=== PATIENT | male | born 1945 | race Caucasian/White ===

== ENCOUNTER → 2017-12-16 | Outpatient (REF) | payer MEDICARE | LOC: M SFHCPLAZ 17:13 | DX: L81.4 Other melanin hyperpigmentation (principal); L56.8 Other specified acute skin changes due to ultraviolet radiation; L85.9 Epidermal thickening, unspecified | CPT/HCPCS: 88305 ==

== ENCOUNTER 2018-07-19 15:29 | Emergency (ER) | payer MEDICARE ==
[~2018-07-19] VITALS: Ht 172.7 cm; Wt 82.9 kg
[2018-07-19] MEDS ORDERED: CO Q200C10 PO (16:17)
[2018-07-19] MEDS ORDERED: ASPI81TA85 PO (16:17)
[2018-07-19] MEDS ORDERED: ATOR1TAB19 PO (16:17)
[2018-07-19] MEDS ORDERED: FLUO20CA19 PO (16:17)
[2018-07-19] MEDS ORDERED: MULTCAP PO (16:17)
[2018-07-19] MEDS ORDERED: OXYB5TAB PO (16:17)
[2018-07-19] MEDS ORDERED: NEUR300C PO (17:12)
[2018-07-19] MEDS ORDERED: GABAPENTIN 300 MG CAP PO ONE (17:15)
[2018-07-19 18:45] VITALS: BP 133/76
--- NOTE | 2018-07-20 08:02 | ECGEPIP ---
[facility] - ED Test Date: 2018-07-19 Pat Name: FRITZ BECK Department: Room: - Gender: Male Senior Marketing Engineer: : 1945 Requested By: Chanda Wharton PA-C Order Number: [id number] Reading MD: Priyanka Leonard Measurements Intervals [place] Rate: 51 P: 55 VT: 192 QRS: 30 QRSD: 98 T: 24 QT: 422 QTc: 390 Interpretive Statements SINUS BRADYCARDIA No prior Electronically Signed on 07-20-2018 8:01:47 EDT by Priyanka Leonard
== END 2018-07-19 18:57 | disposition home or self-care (01) ==
LOC: M ED 15:29
DX: R68.84 Jaw pain (principal); M26.601 Right temporomandibular joint disorder, unspecified; R00.1 Bradycardia, unspecified; Z79.82 Long term (current) use of aspirin; Z79.899 Other long term (current) drug therapy

== ENCOUNTER → 2019-02-17 | Outpatient (CLI) | payer MEDICARE ==
[~2019-02-17] MED LIST: ASPI81TA85 PO; ATOR1TAB19 PO; CO Q200C10 PO; FLUO20CA19 PO; MULTCAP PO; NEUR300C PO; OXYB5TAB3 PO
--- NOTE | 2019-02-17 18:52 | REP ---
REASON: Crush injury to the 2nd digit of the right hand. FINDINGS: No acute fracture or destructive osseous lesion. Electronically Signed by Yariel Melgoza DO 02/17/2019 07:50 P
== END ==
LOC: M ADAMS 16:53
PROVIDERS: ATTEND Physician Assistant
DX: S67.190A Crushing injury of right index finger, initial encounter (principal); X58.XXXA Exposure to other specified factors, initial encounter; Y92.89 Other specified places as the place of occurrence of the external cause; Y93.9 Activity, unspecified; Y99.9 Unspecified external cause status

== ENCOUNTER → 2019-12-20 | Outpatient (REF) | payer MEDICARE ==
[~2019-12-20] MED LIST changes: -ASPI81TA85 PO; +ASPI81TA86 PO; -FLUO20CA19 PO; +FLUO20CA22 PO; +OXYB-54 PO; -OXYB5TAB3 PO
== END ==
LOC: M LAB REF 13:41
PROVIDERS: ATTEND Dermatology
DX: D04.4 Carcinoma in situ of skin of scalp and neck (principal); D23.5 Other benign neoplasm of skin of trunk; L57.0 Actinic keratosis

== ENCOUNTER 2020-06-03 22:38 | Emergency (ER) | payer MEDICARE ==
[~2020-06-03] VITALS: Ht 170.2 cm; Wt 81.8 kg
[2020-06-04] MEDS ORDERED: KETOROLAC 30 MG/ML 1ML VIAL IV ONE (01:10)
[2020-06-04] MEDS ORDERED: METHOCARBAMOL 1,000 MG/10 ML VIAL (J2800) IV ONE (01:10)
--- NOTE | 2020-06-04 01:35 | REPVR ---
PROCEDURE INFORMATION: Exam: CT Lumbar Spine Without Contrast Exam date and time: 06/04/2020 1:16 AM Age: 74 years old Clinical indication: Low back pain TECHNIQUE: Imaging protocol: Computed tomography images of the lumbar spine without contrast. Radiation optimization: All CT scans at this facility use at least one of these dose optimization techniques: automated exposure control; mA and/or kV adjustment per patient size (includes targeted exams where dose is matched to clinical indication); or iterative reconstruction. COMPARISON: CR Spine. Lumbosacral, complete 03/04/2015 8:52 AM FINDINGS: Vertebrae: Trace retrolisthesis of T12 on L1. Remainder demonstrates preserved height and AP alignment. Mild to moderate prevertebral osteophytosis. There are bilateral facet joint degenerative changes. No acute lumbar spine fracture. Discs/Spinal canal/Neural foramina: Central canal stenosis greatest at L4-L5, likely [id number]. Vasculature: Vascular calcification. Soft tissues: See "Vertebrae" finding. IMPRESSION: No acute osseous abnormality. Electronically signed by: Drake Leslie On 06/04/2020 01:36:22 AM
[2020-06-04 02:45] VITALS: BP 146/76
[2020-06-04] MEDS ORDERED: OXYCODONE/APAP 5MG/325MG(BULK FOR ED) 1 TABLET PO ONE (03:00)
[2020-06-04] MEDS ORDERED: METH-1165 PO (03:01)
[2020-06-04] MEDS ORDERED: NAPR-837 PO (03:01)
[2020-06-04] MEDS ORDERED: PERC5TAB12 PO (03:01)
== END 2020-06-04 03:17 | disposition home or self-care (01) ==
LOC: M ED 22:38
DX: M54.5 Low back pain (principal); X50.0XXA Overexertion from strenuous movement or load, initial encounter; Y92.9 Unspecified place or not applicable; Y93.9 Activity, unspecified; Y99.9 Unspecified external cause status
CPT/HCPCS: 72131; 96374; 99284; J1885; J2800

== ENCOUNTER → 2020-07-12 | Outpatient (REF) | payer MEDICARE ==
[~2020-07-12] MED LIST changes: +METH-1165 PO; +NAPR-837 PO; +PERC5TAB12 PO
[2020-07-12 18:08] LABS: APPEARANCE, URINE CLEAR (CLEAR); BACTERIA, URINE AUTO NEGATIVE (NEGATIVE); BILIRUBIN, URINE AUTO NEGATIVE (NEGATIVE); BLOOD, URINE BLOOD NEGATIVE (NEGATIVE); COLOR, URINE YELLOW (YELLOW); GLUCOSE, URINE (UA) AUTO NEGATIVE (NEGATIVE); KETONE, URINE AUTO NEGATIVE (NEGATIVE); LEUKOCYTE ESTERASE, URINE AUTO NEGATIVE (NEGATIVE); MUCUS, URINE SMALL (NEGATIVE); NITRITE, URINE AUTO NEGATIVE (NEGATIVE); PROTEIN, URINE AUTO NEGATIVE (NEGATIVE); RBC, URINE AUTO 0 /HPF (0-3); SPECIFIC GRAVITY URINE AUTO 1.021 (1.002-1.035); SQUAMOUS EPITHELIAL CELL UR AU 0 /HPF (0-6); WBC, URINE AUTO 2 /HPF (0-3)
== END ==
LOC: M SMT 16:47
PROVIDERS: ATTEND Nurse Practitioner Family
DX: N40.1 Benign prostatic hyperplasia with lower urinary tract symptoms (principal)
CPT/HCPCS: 51798; 81001; 87086; G0463

== ENCOUNTER → 2020-09-26 | Outpatient (REF) | payer MEDICARE ==
[2020-09-26 12:29] LABS: FOLATE > 24.0 NG/ML; VITAMIN B12 LEVEL 504 PG/ML
== END ==
LOC: M LAB REF 11:21
PROVIDERS: ATTEND Registered Nurse
DX: R53.83 Other fatigue (principal)

== ENCOUNTER 2020-12-26 13:13 | Emergency (ER) | payer MEDICARE ==
[~2020-12-26] VITALS: Ht 172.7 cm; Wt 79.5 kg
[2020-12-26 13:13] VITALS: BP 159/74
--- OUTSIDE RECORDS SUMMARY | 2020-12-26 13:19 | CCD | Continuity of Care Document ---
Author Author Cleveland LUGO P.A. Organization Unknown Address [address] [place] [address] Phone [phone] Care Team Providers Care Electrical Journeyman Name Role Phone Beatriz Stephens AUTM [phone] Imelda Szymanski M.D. AUTM [phone] Toyin Lorenzana AUTM [phone] AUTM Unavailable Problems Active Problems Provider Date Localized swelling, mass and lump, neck Rickey Redmond MD Onset: 11/20/2014 Social History Type Date Description Comments Sex Unknown ETOH Use 1 A Day Tobacco Use Start: Unknown Non Smoker Recreational Drug Use Denies Drug Use Smoking Status Reviewed: 12/10/20 Non Smoker Allergies and adverse reactions Description No Known Drug Allergies Medications Active Medications SIG Qnty Indications Ordering Provide r Date Fluoxetine HCL 10mg Capsules Unknown Atorvastatin Calcium 10mg Tablets 1 by mouth every day Unknown Oxybutynin Chloride ER 10mg Tablets ER 24HR 1 cap by mouth every day Unknown Coq10 200mg Capsules 1 cap by mouth every day Unknown Multivitamin Tablets 1 by mouth every day Unknown Immunizations Description No Information Available Vital Signs Date Vital Result Comment 12/10/2020 2:18pm BP Systolic 114 mmHg BP Diastolic 62 mmHg Heart Rate 60 /min O2 % BldC Oximetry 94 % Height 68 inches 5'8" Weight 183.00 lb BMI (Body Mass Index) 27.8 kg/m2 [place] Body Weight 154 lb Neck Circumference in inches 16.5 [place] Score 9 Weight 83.009 kg BSA (Body Surface Area) 1.97 m2 05/24/2015 9:44am BP Systolic 122 mmHg BP Diastolic 82 mmHg Heart Rate 76 /min Height 68 inches 5'8" Weight 172.00 lb BMI (Body Mass Index) 26.1 kg/m2 [place] Body Weight 154 lb Weight 78.019 kg BSA (Body Surface Area) 1.92 m2 Results Description No Information Available Procedures Date Code Description Status 12/10/2020 56293 Office/Outpatient New Low MDM 30 -44 Minutes Completed Medical Devices Description No Information Available Encounters Type Date Location Provider Dx Diagnosis Office Visit 12/10/2020 2:30p [facility] Pulmonary/Thoracic All Lugo P.A. R06.83 Snoring G47.30 Sleep apnea, unspecified R40.0 Somnolence Assessments Date Code Description Provider 12/10/2020 R06.83 Snoring All Lugo P. A. 12/10/2020 G47.30 Sleep apnea, unspecified All Lugo P.A. 12/10/2020 R40.0 Somnolence All Lugo PLeigha Mohamud Plan of Treatment Future Appointment(s):* 01/28/2021 3:00 pm - All Lugo PIsiah at [facility] Pulmonary/Thoracic * 01/15/2021 7:45 pm - [facility] Sleep Lab at [facility] 12/10/2020 - Rickie Joseph.* R06.83 Snoring * G47.30 Sleep apnea, unspecified * R40.0 Somnolence * * New Orders:* Sleep Nocturnal Diagnostic Sleep Study, Scheduled: 01/15/21 * Comments:* 1. The morbidity of untreated obstructive sleep apnea was reviewed and questions were answered.2. PSG and PAP therapy were reviewed and questions were answered.3. We will schedule for PSG.4. Sleep hygiene was reviewed. * Follow up:* 1. Follow up after testing. Functional Status Description No Information Available Mental Status Description No Information Available Referrals Refer to Reason for Referral Status Appt Date All Lugo R.PEri ? MELCHOR Scheduled 11/17 [facility]-Pulmonary [address] [place] [address] [phone]
--- OUTSIDE RECORDS SUMMARY | 2020-12-26 13:19 | CCD | Continuity of Care Document ---
Author Author Cleveland LUGO P.A. Organization Unknown Address [address] [place] [address] Phone [phone] Care Team Providers Care Industrial Hygienist Name Role Phone Beatriz Stephens AUTM [phone] Imelda Szymanski M.D. AUTM [phone] Toyin Lorenzana AUTM [phone] AUTM Unavailable Problems Active Problems Provider Date [...] lb BMI (Body Mass Index) 27.8 kg/m2 [place] Body Weight 154 lb Neck Circumference in inches 16.5 [place] Score 9 Weight 83.009 kg BSA (Body Surface Area) 1.97 m2 05/24/2015 9:44am BP Systolic 122 mmHg BP Diastolic 82 mmHg Heart Rate 76 /min Height 68 inches 5'8" Weight 172.00 lb BMI (Body Mass Index) 26.1 kg/m2 [place] Body Weight 154 lb Weight 78.019 kg BSA (Body Surface Area) 1.92 m2 Results Description No Information Available Procedures Description No Information Available Medical Devices Description No Information Available Encounters Description No Information Available Assessments Date Code Description Provider 12/10/2020 R06.83 Snoring Luis Joseph 12/10/2020 G47.30 Sleep apnea, unspecified Ulises Joseph 12/10/2020 R40.0 Somnolence Luis Joseph Plan of Treatment Future Appointment(s):* 01/28/2021 3:00 pm - Ulises Joseph at [facility] Pulmonary/Thoracic * 01/15/2021 7:45 pm - [facility] Sleep Lab at [facility] Pulmonary/Thoracic 12/10/2020 - Ulises Joseph* R06.83 Snoring * G47.30 Sleep apnea, unspecified [...] All Lugo R.PEri ? MELCHOR Scheduled 11/17 [facility]-Pulmonary [address] [place] [address] [phone]
--- OUTSIDE RECORDS SUMMARY | 2020-12-26 13:19 | CCD | Continuity of Care Document ---
Author Author Cleveland LUNA DPM Organization Unknown Address [address] [place] [address], [facility] [address] [place] [address] Phone [phone] Care Team Providers Care Grants And Contracts Assistant Name Role Phone Milagros BairesImelda [phone] Problems Active Problems Provider Date Osteochondropathy Mat Luna DPM Onset: 12/30/2018 Hammer toe Mat Luna DPM Onset: 12/30/2018 Corns and callosities Mat Luna DPM Onset: 12/30/2018 Social History Type Date Description Comments Sex Unknown ETOH Use Consumes 2-3 beers per week Tobacco Use Start: Unknown Patient has never smoked Allergies, Adverse Reactions, Alerts Description No Known Drug Allergies Medications Active Medications SIG Qnty Indications Ordering Provide r Date Atorvastatin Calcium 10mg Tablets Angelo CLOTHES SEPARATOR,Beatriz Fluoxetine HCL 20mg Capsules Angelo CLOTHES SEPARATOR,Beatriz Oxybutynin Chloride ER 5mg Tablets ER 24HR Angelo GAXIOLAP,Beatriz 0 Gabapentin 300mg Capsules Unknown Terbinafine HCL 250mg Tablets Angelo CLOTHES SEPARATOR,Beatriz Immunizations Description No Information Available Vital Signs Date Vital Result Comment 10/11/2020 10:31am Height 68 inches 5'8" Weight 175.00 lb BP Systolic 116 mmHg BP Diastolic 68 mmHg Heart Rate 58 /min BMI (Body Mass Index) 26.6 kg/m2 01/31/2020 1:43pm Height 68 inches 5'8" Weight 175.00 lb BP Systolic 120 mmHg BP Diastolic 66 mmHg Heart Rate 60 /min BMI (Body Mass Index) 26.6 kg/m2 Results Description No Information Available Procedures Date Code Description Status 10/11/2020 36397 Office/Outpatient Established Lo w MDM 20-29 Min Completed Medical Devices Description No Information Available Encounters Type Date Location Provider Dx Diagnosis Office Visit 10/11/2020 10:30a [place] [facility] Mat Luna DPM 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
--- OUTSIDE RECORDS SUMMARY | 2020-12-26 13:20 | CCD | Continuity of Care Document ---
Author Author Cleveland ERVIN DPM Organization Unknown Address [address] [place] [address], [facility] [address] [place] [address] Phone [phone] Care Team Providers Care Bike Mechanic Name Role Phone Milagros BairesImelda [phone] Problems Active Problems Provider Date Osteochondropathy Mat Ervin DPM Onset: 12/30/2018 Hammer toe Mat Ervin DPM Onset: 12/30/2018 Corns and callosities Mat Ervin DPM Onset: 12/30/2018 Social History Type Date Description Comments Sex Unknown ETOH Use Consumes 2-3 beers per week Tobacco Use Start: Unknown Patient has never smoked Allergies, Adverse Reactions, Alerts Description No Known Drug Allergies Medications Active Medications SIG Qnty Indications Ordering Provide r Date Atorvastatin Calcium 10mg Tablets Angelo LABORER MARINE TERMINAL,Beatriz Fluoxetine HCL 20mg Capsules Angelo LABORER MARINE TERMINAL,Beatriz Oxybutynin Chloride ER 5mg Tablets ER 24HR Angelo LABORER MARINE TERMINAL,Beatriz 0 Gabapentin 300mg Capsules Unknown Terbinafine HCL 250mg Tablets Angelo LABORER MARINE TERMINAL,Beatriz Immunizations Description No Information Available Vital Signs [...] kg/m2 Results Description No Information Available Procedures Description No Information Available Medical Devices Description No Information Available Encounters Description No Information Available Assessments Description No Information Available Plan of Treatment No Information Available Functional Status Description No Information Available Mental Status Description No Information Available Referrals Description No Information Available
--- OUTSIDE RECORDS SUMMARY | 2020-12-26 13:20 | CCD | Continuity of Care Document ---
Author Author Cleveland URBAN PLANT FACILITIES TECHNICIAN Organization Unknown Address [address] [place] [address] Phone [phone] Care Team Providers Care Panel Machine Setter Name Role Phone Imelda Linares MD AUTM [phone] Monica Daley MD AUTM [phone] Mihai Sultana MD AUTM Unavailable Nirmal Grande MD AUTM [phone] Mat Ervin DPEstuardo AUTM [phone] [facility] AUTM Toyin Urban PLANT FACILITIES TECHNICIAN AUTM [phone] Problems Active Problems Provider Date Dysuria Beatriz Stephens FNP Onset: 02/25/2017 Hyperlipidemia Beatriz Stephens FNP Onset: 02/25/2017 Dysthymia Beatriz Stephens FNP Onset: 02/25/2017 Injury of tendon of the rotator cuff of shoulder Kayleigh Stephens FNP Onset: 02/25/2017 Low back pain Beatriz Stephens FNP Onset: 02/25/2017 History of polyp of colon Beatriz Stephens FNP Onset: 018 Heart murmur Imelda Linares M.D. Onset: 9 Social History Type Date Description Comments Sex Unknown ETOH Use Drinks 4 Alcoholic Beverages Per Week Tobacco Use Start: Unknown Patient has never smoked Allergies, Adverse Reactions, Alerts Active Allergies Reaction Severity Comments Date Yellow Jacket Venom Protein Uses EpiPen f or this 09/20/2019 Inactive Allergies NKDA 08/01/2014 Medications Active Medications SIG Qnty Indications Ordering Provide r Date Oxybutynin Chloride ER 10mg Tablets ER 24HR 1 qd po 90tabs Bright Mesa MD 2020 Fluoxetine HCL 20mg Capsules 1 by mouth every day 90caps Bright Mesa MD 12/21/2017 Epipen 2-Chris 0.3mg/0 .3ML Solution Auto-Inject as directed 2units T63.441A Bright Mesa MD 2017 Aleve 220mg Capsules 1 by mouth twice a day as needed Beatriz Stephens FNP 08/17/[address] Aspir-[address] 1 by mouth every day Imelda Linares M.D. 02/25/19 18 Centrum Silver Tablets 1 by mouth everyday by mouth Imelda Linares M.D. 2017 Co Q10 100mg Capsules 1 by mouth every day Beatriz Stephens FNP 08/06/2015 Atorvastatin Calcium 10mg Tablets 1 by mouth every day 90tabs Bright Mesa MD 11/20/2014 History Medications Prednisone 10mg Tablets 4 by mouth daily for 3 days then 3 daily for 3 days then 2 daily for 3 days then 1 daily for 3 days and stop. 31tabs MAC Unger JR 021 - 09/26/2020 Tamsulosin HCL 0.4mg Capsules 1 daily 1 hour after same meal by mouth 30caps R39.12 MAC Unger JR 05/01/2020 - 06/18/2020 Medications Administered in Office Medication SIG Qnty Indications Ordering Provider Date Covid-19 vaccine, Unspecified Inj ection Unknown 04/07/2020 Covid-19 vaccine, Unspecified Inj ection Unknown 03/18/2020 Immunizations CPT Code Status Date Vaccine Lot # U-Flu Given 01/26/2019 Influenza,Unspecified [id number] Given 05/06/2018 Shingrix [id number] Given 01/18/2018 Shingrix U-PneuC Given 08/18/2016 Prevnar 13 [id number] Given 08/01/2014 Pneumovax 23 [id number] Vital Signs Date Vital Result Comment 09/26/2020 7:45am BP Systolic 118 mmHg BP Diastolic 66 mmHg Heart Rate 58 /min Height 67.25 inches 5'7.25" Weight 177.12 lb O2 % BldC Oximetry 98 % RM Air BMI (Body Mass Index) 27.5 kg/m2 06/18/2020 1:08pm BP Systolic 120 mmHg BP Diastolic 70 mmHg Heart Rate 70 /min Height 67.25 inches 5'7.25" Weight 183.00 lb BMI (Body Mass Index) 28.4 kg/m2 Results Test Acquired Date Facility Test Result H/L Range Note Vitamin B12 & Folate 09/26/2020 [facility] enter [address] [place] [address] [phone] Vitamin B12 Level 504 pg/mL Normal 1 Folate > 24.0 NG/ML Normal 2 Complete Blood Count 09/26/2020 [facility] Riding Coach: Dr Bright Mesa [place] [id number] [phone] WBC 5.0 x10*3/UL 4.1 - 10.9 RBC 4.88 x10*6/UL 4.20 - 6.30 Hemoglobin 15.0 g/dL 12.0 - 18.0 Hematocrit 43.5 % 37.0 - 51.0 MCV 89.0 fL 80.0 - 97.0 MCH 30.8 pg 26.0 - 32.0 MCHC 34.6 g/dL 31.0 - 38.0 RDW 13.1 % 11.6 - 13.7 PLT 245 x10*3/UL 140 - 440 MPV 7.5 FL Low 7.8 - 11.0 Lymph % 21.9 % 10.0 - 58.5 Mid % 5.9 % 1.7 - 9.3 Neut % 72.2 % 37.0 - 92.0 Lymph # 1.1 x10*3/UL 0.6 - 4.1 Mid # 0.3 x10*3/UL 0.1 - 0.6 Neut # 3.6 x10*3/UL 2.0 - 7.8 Basic Metabolic Panel 09/26/2020 [facility] Riding Coach: [place] [address] [phone] Glucose 97 mg/dL 74 - 99 3 BUN 13 mg/dL 7 - 18 Creatinine 0.8 mg/dL 0.6 - 1.3 Sodium 137 mEq/L 136 - 145 Potassium 4.7 mEq/L 3.5 - 5.1 Chloride 100 mEq/L 98 - 107 Carbon Dioxide 30 mEq/L 21 - 32 Calcium 9.6 mg/dL 8.5 - 10.1 GFR >= 60 mL/min >60 GFR >= 60 mL/min >60 4 Lipid Profile 09/26/2020 [facility] , Riding Coach: Dr Bright Mesa [place], [place] [id number] [phone] Cholesterol 167 mg/dL 131 - 200 Triglycerides 29 mg/dL Low 30 - 150 HDL Cholesterol 67 mg/dL High 35 - 60 LDL (Calculated) 94 CALC 50 - 159 Laboratory test finding 06/01/2020 [facility], Riding Coach: Dr Bright Mesa [place], [place] [id number] [phone] PSA 1.62 ng/mL <4.00 5 Ua Dipstick Only 05/01/2020 [facility] R[facility] Coach: Dr Bright Mesa [place], [place] [id number] [phone] Urine Color YELLOW Yellow Urine Appearance SL. HAZY Abnormal Clear Urine PH 7.0 units 5.0 - 9.0 Urine Specific [place] 1.015 1.005 - 1.030 Urine Leukocytes NEGATIVE Negative Urine Blood NEGATIVE Negative Urine Protein NEGATIVE Negative -Trace Urine Glucose NEGATIVE mg/dL Negative Urine Nitrite NEGATIVE Negative Urine Ketone NEGATIVE mg/dL Negative Urine Bilirubin NEGATIVE Negative Urine Urobilinogen 0.2 mg/dL 0.2 - 1.0 1 VITAMIN B12 NORMAL RANGE NORMAL 247 - 911 PG/ML INDETERMINATE 211 - 246 PG/ML DEFICIENT LESS THAN 211 PG/ML 2 FOLATE NORMAL RANGE NORMAL GREATER THAN 5.4 NG/ML INDETERMINATE 3.4-5.4 NG/ML DEFICIENT LESS THAN 3.4 NG/ML 3 100-125 mg/dL PRE-DIABET ES/FASTING >126 mg/dL DIABETES/FASTING 4 CHRONIC KIDNEY DISEASE STAGI NG PER NKF STAGE I & II GFR >= 60 NORMAL TO MILDLY DECREASED STAGE III GFR 30-59 MODERATELY DECREASED STAGE IV GFR 15-29 SEVERELY DECREASED STAGE V GFR <15 VERY LITTLE GFR LEFT ESRD GFR <15 ON VOLLEYBALL COACH 5 This assay was performed on the Siemens Dimension EXL using the B- Galactosidase/CPRG methodology and should not be compared interchangeably with other methods. The PSA should not be used alone as a screening test for the presence or absence of malignant disease. Procedures Date Code Description Status 09/26/2020 33850 Office/Outpatient Established Mo d MDM 30-39 Min Completed 09/26/2020 14664 EKG/Interpretation & Report Comp leted 06/18/2020 39273 Office/Outpatient Established Lo w MDM 20-29 Min Completed 06/01/2020 13945 Office/Outpatient Established Lo w MDM 20-29 Min Completed 05/01/2020 31734 Office/Outpatient Established Lo w MDM 20-29 Min Completed 05/23/2016 46580813 Colonoscopy Completed Medical Devices Description No Information Available Encounters Type Date Location Provider Dx Diagnosis Office Visit 09/26/2020 8:00a [facility] InternLeydi lucas FNP E78.5 Hyperlipidemia, unspecified R53.83 Other fatigue R35.1 Nocturia F32.89 Other specified depressive e pisodes M54.5 Low back pain Z86.010 Personal history of colonic polyps E66.3 Overweight Z68.27 Body mass index [BMI] 27.0-2 7.9, adult R06.83 Snoring R42 Dizziness and giddiness M15.9 Polyosteoarthritis, unspecif ied Z13.89 Encounter for screening for other disorder Office Visit 06/18/2020 1:00p Leydi Bowen JR, PA M54.31 Sciatica, right side M54.5 Low back pain R35.0 Frequency of micturition R39.12 Poor urinary stream Office Visit 06/01/2020 8:00a Leydi Bowen JR, PA R35.0 Frequency of micturition R39.12 Poor urinary stream R35.1 Nocturia Office Visit 05/01/2020 1:40p Leydi Bowen FNP R39.12 Poor urinary stream R35.0 Frequency of micturition R42 Dizziness and giddiness Assessments Date Code Description Provider 09/26/2020 E78.5 Hyperlipidemia, unspecified BRANDEE Dolan 09/26/2020 R53.83 Other fatigue Toyin Urban, F COMMUTATOR TESTER 09/26/2020 R35.1 Nocturia Toyin Urban, F COMMUTATOR TESTER 09/26/2020 F32.89 Other specified depressive episo tato Toyin Urban, PLANT FACILITIES TECHNICIAN 09/26/2020 M54.5 Low back pain Toyin Urban, F COMMUTATOR TESTER 09/26/2020 Z86.010 Personal history of colonic poly ps Toyin Urban, PLANT FACILITIES TECHNICIAN 09/26/2020 E66.3 Overweight Toyin Urban, F COMMUTATOR TESTER 09/26/2020 Z68.27 Body mass index [BMI] 27.0-27.9, adult Toyin Urban, PLANT FACILITIES TECHNICIAN 09/26/2020 R06.83 Snoring Toyin Urban, F COMMUTATOR TESTER 09/26/2020 R42 Dizziness and giddiness Toyin Urban, PLANT FACILITIES TECHNICIAN 09/26/2020 M15.9 Polyosteoarthritis, unspecified Toyin Urban, PLANT FACILITIES TECHNICIAN 09/26/2020 Z13.89 Encounter for screening for othe r disorder Toyin Urban, [facility] 06/18/2020 M54.31 Sciatica, right side Mihai burgos JR, PA 06/18/2020 M54.5 Low back pain Mihai garcia JR, PA 06/18/2020 R35.0 Frequency of micturition Mihai Prabhakar JR, PA 06/18/2020 R39.12 Poor urinary stream Mihai brizuela JR, PA 06/01/2020 R35.0 Frequency of micturition Mihai Prabhakar JR, PA 06/01/2020 R39.12 Poor urinary stream Mihai brizuela JR, PA 06/01/2020 R35.1 Nocturia Mihai garcia JR PA 05/01/2020 R39.12 Poor urinary stream Toyinmae Mcleod lucie, PLANT FACILITIES TECHNICIAN 05/01/2020 R35.0 Frequency of micturition Toyin Harriett, PLANT FACILITIES TECHNICIAN 05/01/2020 R42 Dizziness and giddiness BRANDEE Naranjo Plan of Treatment Future Appointment(s):* 03/29/2021 8:40 am - BRANDEE Naranjo at [facility] 09/26/2020 - BRANDEE Naranjo* E78.5 Hyperlipidemia, unspecified* Comments:* Lipids are pending. Continues on Atorvastatin. Heart healthy Mediterranean style diet encouraged as well as portion control and exercise as tolerated and as able. Update EKG today. * R53.83 Other fatigue* Comments:* Check CBC, BMP, B12 and folate. * Recommendations:* Maintain adequate hydration, increase protein in the diet. Consider sleep study if labs WNL. * R35.1 Nocturia* Comments:* Feels Oxybutynin is beneficial. Continue the same. Adequate hydration is discussed. * F32.89 Other specified depressive episodes* Comments:* Stable on present dose of Fluoxetine. * M54.5 Low back pain* Comments:* Resolved. * Z86.010 Personal history of colonic polyps* Comments:* Colonoscopy is UTD. Due to update next year. No current issues or complaints. * E66.3 Overweight* Comments:* Patient is quite active running and exercising, recommend portion control, balanced diet. * Z68.27 Body mass index [BMI] 27.0-27.9, adult * R06.83 Snoring* Comments:* Discussed sleep study. At this time, patient defers, would like to await lab results. If negative lab results, will consider sleep study. * R42 Dizziness and giddiness* Comments:* x1 episode which has not recurred. He is planning to hydrate more frequently and monitor. Check CBC, BMP. Discussed balanced diet. * M15.9 Polyosteoarthritis, unspecified* Comments:* Managed well with Aleve. * Z13.89 Encounter for screening for other disorder * All * Comments:* Follow up in six months sooner PRN.Encouraged balanced diet, 4-5 servings of fresh fruits and vegetables daily. Recommended at least 30 minutes of exercise daily and eight 8 oz. glasses of water daily.Testicular self exams encouraged monthly.RTC PRN for acute illness. COVID precautions are discussed and social distancing/mask use/ frequent hand washing and sanitizing are encouraged. Functional Status Description No Information Available Mental Status Description No Information Available Referrals Refer to Reason for Referral Status Appt Date [facility] Pulmonary Medicine CONSULT FOR SLEEP STUDY FOR MELCHOR SYMPTONS Created [address] [place] [address] [phone] [facility] [place] CONSULT FOR BPH Closed [address] [place] [address] [phone]
--- OUTSIDE RECORDS SUMMARY | 2020-12-26 13:20 | CCD ---
Author Author [facility] Organization [facility] Address Unknown Phone Unavailable Care Team Providers Care Crew Leader Gluing Name Role Phone Harriett, Toyin SANITATION MANAGER Unavailable Unavailable Harriett, Toyin SANITATION MANAGER Unavailable Unavailable Harriett, Toyin SANITATION MANAGER Unavailable Unavailable Harriett, Toyin SANITATION MANAGER Unavailable Unavailable Harriett, Toyin SANITATION MANAGER Unavailable Unavailable Harriett, Toyin SANITATION MANAGER Unavailable Unavailable Harriett, Toyin SANITATION MANAGER Unavailable Unavailable Harriett, Toyin SANITATION MANAGER Unavailable Unavailable Harriett, Toyin SANITATION MANAGER Unavailable Unavailable Harriett, Toyin SANITATION MANAGER Unavailable Unavailable Harriett, Toyin SANITATION MANAGER Unavailable Unavailable Harriett, Toyin SANITATION MANAGER Unavailable Unavailable Harriett, Toyin SANITATION MANAGER Unavailable Unavailable Harriett, Toyin SANITATION MANAGER Unavailable Unavailable Harriett, Toyin SANITATION MANAGER Unavailable Unavailable Harriett, Toyin SANITATION MANAGER Unavailable Unavailable Harriett, Toyin SANITATION MANAGER Unavailable Unavailable Harriett, Toyin SANITATION MANAGER Unavailable Unavailable Harriett, Toyin SANITATION MANAGER Unavailable Unavailable Harriett, Toyin SANITATION MANAGER Unavailable Unavailable Harriett, Toyin SANITATION MANAGER Unavailable Unavailable Harriett, Toyin SANITATION MANAGER Unavailable Unavailable Harriett, Toyin SANITATION MANAGER Unavailable Unavailable Harriett, Toyin SANITATION MANAGER Unavailable Unavailable Harriett, Toyin SANITATION MANAGER Unavailable Unavailable Harriett, Toyin SANITATION MANAGER Unavailable Unavailable Harriett, Toyin SANITATION MANAGER Unavailable Unavailable Harriett, Toyin SANITATION MANAGER Unavailable Unavailable Harriett, Toyin SANITATION MANAGER Unavailable Unavailable Harriett, Toyin SANITATION MANAGER Unavailable Unavailable Harriett, Toyin SANITATION MANAGER Unavailable Unavailable Harriett, Toyin SANITATION MANAGER Unavailable Unavailable Harriett, Toyin SANITATION MANAGER Unavailable Unavailable Harriett, Toyin SANITATION MANAGER Unavailable Unavailable Harriett, Toyin SANITATION MANAGER Unavailable Unavailable PICKERAL JR, J BRETT PA-C Unavailable Unavailable PICKERAL JR, J BRETT PA-C Unavailable Unavailable PICKERAL JR, J BRETT PA-C Unavailable Unavailable PICKERAL JR, J BRETT PA-C Unavailable Unavailable PICKERAL JR, J BRETT PA-C Unavailable Unavailable PICKERAL JR, J BRETT PA-C Unavailable Unavailable PICKERAL JR, J BRETT PA-C Unavailable Unavailable PICKERAL JR, J BRETT PA-C Unavailable Unavailable PICKERAL JR, J BRETT PA-C Unavailable Unavailable PICKERAL JR, J BRETT PA-C Unavailable Unavailable PICKERAL JR, J BRETT PA-C Unavailable Unavailable PICKERAL JR, J BRETT PA-C Unavailable Unavailable PICKERAL JR, J BRETT PA-C Unavailable Unavailable PICKERAL JR, J BRETT PA-C Unavailable Unavailable PICKERAL JR, J BRETT PA-C Unavailable Unavailable PICKERAL JR, J BRETT PA-C Unavailable Unavailable PICKERAL JR, J BRETT PA-C Unavailable Unavailable PICKERAL JR, J BRETT PA-C Unavailable Unavailable PICKERAL JR, J BRETT PA-C Unavailable Unavailable PICKERAL JR, J BRETT PA-C Unavailable Unavailable PICKERAL JR, J BRETT PA-C Unavailable Unavailable PICKERAL JR, J BRETT PA-C Unavailable Unavailable PICKERAL JR, J BRETT PA-C Unavailable Unavailable PICKERAL JR, J BRETT PA-C Unavailable Unavailable PICKERAL JR, J BRETT PA-C Unavailable Unavailable PICKERAL JR, J BRETT PA-C Unavailable Unavailable PICKERAL JR, J BRETT PA-C Unavailable Unavailable Adolph LUNA DPM Unavailable Unavailable Adolph LUNA DPM Unavailable Unavailable Adolph LUNA DPM Unavailable Unavailable Adolph LUNA DPM Unavailable Unavailable Adolph LUNA DPM Unavailable Unavailable Adolph LUNA DPM Unavailable Unavailable Adolph LUNA DPM Unavailable Unavailable Adolph LUNA DPM Unavailable Unavailable CHERYL R VEE DPM Unavailable Unavailable Adolph LUNA DPM Unavailable Unavailable Adolph LUNA DPM Unavailable Unavailable Adoplh LUNA DPM Unavailable Unavailable Adolph LUNA DPM Unavailable Unavailable Adolph LUNA DPM Unavailable Unavailable Adolph LUNA DPM Unavailable Unavailable CHERYL R VEE DPM Unavailable Unavailable Adolph LUNA DPM Unavailable Unavailable Adolph LUNA DPM Unavailable Unavailable MAJAK, R VEE DPM Unavailable Unavailable MAJAK, R VEE DPM Unavailable Unavailable MAJAK, R VEE DPM Unavailable Unavailable MAJAK, R VEE DPM Unavailable Unavailable MAJAK, R VEE DPM Unavailable Unavailable MAJAK, R VEE DPM Unavailable Unavailable MAJAK, R VEE DPM Unavailable Unavailable MAJAK, R VEE DPM Unavailable Unavailable MAJAK, R VEE DPM Unavailable Unavailable MAJAK, R VEE DPM Unavailable Unavailable MAJAK, R VEE DPM Unavailable Unavailable MAJAK, R VEE DPM Unavailable Unavailable MAJAK, R VEE DPM Unavailable Unavailable MAJAK, R VEE DPM Unavailable Unavailable Frances Sahni MD Unavailable Unavailable Frances Sahni MD Unavailable Unavailable Frances Sahni MD Unavailable Unavailable Frances Sahni MD Unavailable Unavailable Frances Sahni MD Unavailable Unavailable Frances Sahni MD Unavailable Unavailable Frances Sahni MD Unavailable Unavailable Frances Sahni MD Unavailable Unavailable Frances Sahni MD Unavailable Unavailable Frances Sahni MD Unavailable Unavailable Frances Sahni MD Unavailable Unavailable Frances Sahni MD Unavailable Unavailable Frances Sahni MD Unavailable Unavailable Frances Sahni MD Unavailable Unavailable Frances Sahni MD Unavailable Unavailable Frances Sahni MD Unavailable Unavailable Frances Sahni MD Unavailable Unavailable Frances Sahni MD Unavailable Unavailable Frances Sahni MD Unavailable Unavailable Frances Sahni MD Unavailable Unavailable Frances Sahni MD Unavailable Unavailable Frances Sahni MD Unavailable Unavailable Frances Sahni MD Unavailable Unavailable Frances Sahni MD Unavailable Unavailable Frances Sahni MD Unavailable Unavailable Frances Sahni MD Unavailable Unavailable Frances Sahni MD Unavailable Unavailable Frances Sahni MD Unavailable Unavailable Frances Sahni MD Unavailable Unavailable Frances Sahni MD Unavailable Unavailable Frances Sahni MD Unavailable Unavailable Frances Sahni MD Unavailable Unavailable Frances Sahni MD Unavailable Unavailable Frances Sahni MD Unavailable Unavailable Frances Sahni MD Unavailable Unavailable Frances Sahni MD Unavailable Unavailable Frances Sahni MD Unavailable Unavailable Frances Sahni MD Unavailable Unavailable Frances Sahni MD Unavailable Unavailable Frances Sahni MD Unavailable Unavailable Frances Sahni MD Unavailable Unavailable Frances Sahni MD Unavailable Unavailable Frances Sahni MD Unavailable Unavailable Frances Sahni MD Unavailable Unavailable Frances Sahni MD Unavailable Unavailable Frances Sahni MD Unavailable Unavailable Frances Sahni MD Unavailable Unavailable Frances Sahni MD Unavailable Unavailable Kaitlyn B Saleem SOFIA Unavailable Unavailable Kaitlyn B Saleem SOFIA Unavailable Unavailable Kaitlyn B Saleem SOFIA Unavailable Unavailable Kaitlyn B Saleem SOFIA Unavailable Unavailable Frances Sanhi MD Unavailable Unavailable Frances Sahni MD Unavailable Unavailable Frances Sahni MD Unavailable Unavailable Svdaron, Frances Monge MD Unavailable Unavailable HERRERA, M COBY PA Unavailable Unavailable HERRERA, M COBY PA Unavailable Unavailable HERRERA, M COBY PA Unavailable Unavailable HERRERA, M COBY PA Unavailable Unavailable HERRERA, M COBY PA Unavailable Unavailable HERRERA, M COBY PA Unavailable Unavailable HERRERA, M COBY PA Unavailable Unavailable HERRERA, M COBY PA Unavailable Unavailable HERRERA, M COBY PA Unavailable Unavailable HERRERA, M COBY PA Unavailable Unavailable HERRERA, M COBY PA Unavailable Unavailable HERRERA, M COBY PA Unavailable Unavailable HERRERA, M COBY PA Unavailable Unavailable HERRERA, M COBY PA Unavailable Unavailable HERRERA, M COBY PA Unavailable Unavailable HERRERA, M COBY PA Unavailable Unavailable HERRERA, M COBY PA Unavailable Unavailable HERRERA, M COBY PA Unavailable Unavailable HERRERA, M COBY PA Unavailable Unavailable HERRERA, M COBY PA Unavailable Unavailable HERRERA, M COBY PA Unavailable Unavailable HERRERA, M COBY PA Unavailable Unavailable HERRERA, M COBY PA Unavailable Unavailable HERRERA, M COBY PA Unavailable Unavailable HERRERA, M COBY PA Unavailable Unavailable HERRERA, M COBY PA Unavailable Unavailable HERRERA, M COBY PA Unavailable Unavailable HERRERA, M COBY PA Unavailable Unavailable HERRERA, M COBY PA Unavailable Unavailable HERRERA, M COBY PA Unavailable Unavailable HERRERA, M COBY PA Unavailable Unavailable HERRERA, M COBY PA Unavailable Unavailable HERRERA, M COBY PA Unavailable Unavailable HERRERA, M COBY PA Unavailable Unavailable HERRERA, M COBY PA Unavailable Unavailable Re-disclosure Warning The records that you are about to access may contain information from federally-assisted alcohol or drug abuse programs. If such information is present, then the following federally mandated warning applies: This information has been disclosed to you from records protected by federal confidentiality rules (42 CFR part 2). The federal rules prohibit you from making any further disclosure of this information unless further disclosure is expressly permitted by the written consent of the person to whom it pertains or as otherwise permitted by 42 CFR part 2. A general authorization for the release of medical or other information is NOT sufficient for this purpose. The Federal rules restrict any use of the information to criminally investigate or prosecute any alcohol or drug abuse patient.The records that you are about to access may contain highly sensitive health information, the redisclosure of which is protected by Article 27-F of the [facility] Public Health law. If you continue you may have access to information: Regarding HIV / AIDS; Provided by facilities licensed or operated by the [facility] Office of Mental Health; or Provided by the [facility] Office for People With Developmental Disabilities. If such information is present, then the following [facility] mandated warning applies: This information has been disclosed to you from confidential records which are protected by state law. State law prohibits you from making any further disclosure of this information without the specific written consent of the person to whom it pertains, or as otherwise permitted by law. Any unauthorized further disclosure in violation of state law may result in a fine or group home sentence or both. A general authorization for the release of medical or other information is NOT sufficient authorization for further disc losure. Family History Family Member Name Family Member Gender Family Member Status Date o f Status Description Data Source(s) Unknown Unknown Problem [facility] ([facility]) Unknown Unknown Problem [facility]) Unknown Male Problem MED[facility] ([facility]) Unknown Unknown Problem [facility] ([facility] Encounters Encounter Providers Location Date Indications Data Source(s ) Outpatient Attender: COBY Alfaro/Ruy/Llao/Kemi dl 12/10/2020 02:30:00 PM EDT [facility] ([facility] Outpatient Attender: VEE LUNA [facility] Office 09/17 10:30:00 AM EDT [facility] ([facility] Outpatient Attender: Toyin Magaña 08:00:00 AM EDT MED[facility] ([facility] ) Unknown [address] [facility] [place] [address] 08/21/2020 12:00:00 AM EDT eCW1 ([facility]) Outpatient [address] [facility] [place] [address] 08/21/2020 12:00:00 AM EDT eCW1 ([facility]) Unknown [address] [facility] [place] [address] 07/17/2020 12:00:00 AM EDT eCW1 ([facility]) Outpatient [address] [facility] [place] [address] 07/12/2020 12:00:00 AM EDT eCW1 ([facility]) Outpatient Attender: BRETT Magaña 0 06/18/2020 01:00:00 PM EDT MEDENT ([facility] ) Outpatient Attender: BRETT Magaña 0 06/01/2020 08:00:00 AM EDT MED[facility] ([facility] ) [facility] 02:30:00 PM EDT MEDENT ([facility]) Outpatient Attender: Toyin Magaña 01:40:00 PM EDT MEDENT ([facility] ) Outpatient Attender: VEE LUNA [facility] Office 01/16 12:45:00 PM EST MED[facility] ([facility] (SENIOR PLANNER) [place] [address] [facility], [facility] [address] 01/30/2020 12:00:00 AM EST eCW1 ([facility]) Office Visit, Est Pt., Level 3 PC [address] [place] [address] 12/20/2019 12:00:00 AM EST eCW1 ([facility]) Immunizations Vaccine Date Status Description Data Source(s) COVID-19 VACCINE Moderna 12/19/2020 12:00:00 AM EDT completed [facility] Vaccine Series Complete: YESThis Data wa s Submitted to [facility] Via [facility]. COVID-19 VACCINE [facility] 04/07/2020 12:00:00 AM EST completed [facility] Vaccine Series Complete: YESThis Data wa s Submitted to [facility] Via [employer]. COVID-19 VACCINE NuPathe 03/17/2020 12:00:00 AM EST completed [facility] Vaccine Series Complete: NOThis Data was Submitted to [facility] Via [employer]. Medications Medication Brand Name Start Date Product Form Dose Route Admi nistrative Instructions Pharmacy Instructions Status Indications Reaction Description Data Source(s) 24 HR Fesoterodine Fumarate 4 MG Extende d Release Oral Tablet [Toviaz] Toviaz 4 MG Toviaz 4 MG 07/17/2020 12:00:00 AM EDT 1.0 {tablet} active Toviaz 4 MG eCW1 ([facility]) 24 HR Fesoterodine Fumarate 4 MG Extende d Release Oral Tablet [Toviaz] Toviaz 4 MG Toviaz 4 MG 07/17/2020 12:00:00 AM EDT 1.0 {tablet} suspended Toviaz 4 MG eCW1 ([facility]) 24 HR Fesoterodine Fumarate 4 MG Extende d Release Oral Tablet [Toviaz] Toviaz 4 MG Toviaz 4 MG 07/17/2020 12:00:00 AM EDT 1.0 {tablet} suspended Toviaz 4 MG eCW1 ([facility]) 24 HR mirabegron 50 MG Extended Release Oral Tablet [M yrbetriq] Myrbetriq 50 MG Myrbetriq 50 MG 07/12/2020 12:00:00 AM EDT 1.0 {tablet} suspended Myrbetriq 50 MG eCW1 ([facility]) 24 HR mirabegron 50 MG Extended Release Oral Tablet [M yrbetriq] Myrbetriq 50 MG Myrbetriq 50 MG 07/12/2020 12:00:00 AM EDT 1.0 {tablet} active Myrbetriq 50 MG eCW1 ([facility]) 24 HR mirabegron 50 MG Extended Release Oral Tablet [M yrbetriq] Myrbetriq 50 MG Myrbetriq 50 MG 07/12/2020 12:00:00 AM EDT 1.0 {tablet} active Myrbetriq 50 MG eCW1 ([facility]) 24 HR mirabegron 50 MG Extended Release Oral Tablet [M yrbetriq] Myrbetriq 50 MG Myrbetriq 50 MG 07/12/2020 12:00:00 AM EDT 1.0 {tablet} suspended Myrbetriq 50 MG eCW1 ([facility]) Prednisone 10 MG Oral Tablet Prednisone 06/18/2020 12:00:00 AM EDT ORAL completed MEDENT ([facility]) 24 HR Oxybutynin chloride 10 MG Extended Release Oral Tablet Oxybutynin Chloride ER 06/18/2020 12:00:00 AM EDT ORAL active MEDENT ([facility]) Tamsulosin hydrochloride 0.4 MG Oral Capsule Tamsulosin HCL 05/01/2020 12:00:00 AM EDT ORAL completed MED[facility] ([facility]) Covid-19 vaccine, Unspecified 04/07/2020 12:00:00 AM EST completed [facility] ([facility]) Medication administered onsite Covid-19 vaccine, Unspecified 03/18/2020 12:00:00 AM EST completed [facility]) Medication administered onsite Insurance Providers Payer name Policy type / Coverage type Policy ID Covered republican ID Covered republican's relationship to lerma Policy Lerma Plan Information Medicare Blue Ppo Commercial [id number] Self [place] [id number] Self Medicare Blue Ppo Commercial [id number] Self [id number] Medicare Blue Ppo Commercial [id number] Self Medicare Blue Ppo Commercial [id number] Self [id number] Medicare Blue Ppo Commercial [id number] Self [id number] Medicare Blue Ppo Commercial [id number] Self [id number] MEDICARE BLUE [id number] P VYM [id number] MEDICARE [id number] SP [id number] T [facility] GE PART A [id number] SP [id number] [place] Primary [id number] Self [facility] Medigap Part B [id number] Self MEDICARE BLUE PPO [id number] SP [id number] BS Medicare Blue Ppo/Hmo Commercial [id number] Self [id number] [employer] BCBS B [id number] S VYM [id number] BLUE CROSS BLUE SHIELD -O/P [id number] 18 [id number] BLUE CROSS BLUE SHIELD -CLINIC [id number] [facility] [facility] Commercial [id number] Self V [id number] BLUE CROSS BLUE SHIELD MCR -CLINIC [id number] 18 [id number] [employer] [facility] [facility] Commercial [id number] Self V [id number] BLUE CROSS BLUE SHIELD MCR -OP [id number] 18 [id number] BLUE CROSS BLUE SHIELD MCR -PROFEE [id number] 18 [id number] [employer] [place] [facility] Commercial [id number] Self V [id number] [employer] [facility] [facility] Commercial [id number] Self V [id number] [employer] [facility] [facility] Commercial [id number] Self V [id number] [employer] [facility] [facility] Commercial [id number] Self V [id number] MEDICARE BLUE PPO 306 [id number] SP [id number] BS Medicare Blue Ppo/Hmo Commercial [id number] Self [id number] [employer] BCBS B [id number] S VYM [id number] MEDICARE BLUE PPO [id number] SP [id number] [facility] BS [id number] 18 [id number] [facility] [facility] [facility] Commercial [id number] Self V [id number] ANSI-Medicare Part B [id number] EXCELLUS B/C [id number] P [id number] Problems, Conditions, and Diagnoses Code Display Name Description Problem Type Effective Dates Data Source(s) R35.0 Urinary frequency Urinary frequency Problem 07/12/2020 12:00:00 AM EDT eCW1 ([facility]) N40.1 Lower urinary tract symptoms due to george gn prostatic hypertrophy Benign prostatic hyperplasia with lower urinary tract symptoms Problem 07/12/2020 12:00:00 AM EDT eCW1 ([facility]) D18.01 [id number] [place] angioma Problem 12/20/2019 12:00:00 A M EST eCW1 ([facility]) D22.71 [id number] Melanocytic nevi of right lower limb, inc luding hip Problem 12/20/2019 12:00:00 AM EST eCW1 ([facility]) D22.72 [id number] Melanocytic nevi of left lower l imb, including hip Problem 12/20/2019 12:00:00 AM EST eCW1 ([facility]) Surgeries/Procedures Procedure Description Date Indications Data Source(s) OFFICE OUTPATIENT NEW 30 MINUTES 12/10/2020 12:00:00 A M EDT [facility] OFFICE OUTPATIENT VISIT 15 MINUTES 10/11/2020 12:00:00 AM EDT MED[facility] ([facility] ECG ROUTINE ECG W/LEAST 12 LDS W/I&R 09/26/2020 12:00: 00 AM EDT MEDENT ([facility]) OFFICE OUTPATIENT VISIT 25 MINUTES 09/26/2020 12:00:00 AM EDT MED[facility] ([facility]) uro PVR (Post Voiding Residual) Bladder Scan 12:00:00 AM EDT eCW1 ([facility]) OFFICE OUTPATIENT VISIT 15 MINUTES 06/18/2020 12:00:00 AM EDT MEDENT ([facility]) OFFICE OUTPATIENT VISIT 15 MINUTES 06/01/2020 12:00:00 AM EDT MEDENT ([facility]) 1 Ounce Occupational Therapy Asst 05/24/2020 12:00:00 AM EDT MEDENT ([facility]) [facility] XM&EVAL COMPRHNSV ESTAB PT 1/> VST 05/24 12:00:00 AM EDT MEDENT ([facility]) DETERMINATION REFRACTIVE STATE 05/24/2020 12:00:00 AM EDT MEDENT ([facility]) COMPUTERIZED OPHTHALMIC IMAGING OPTIC NERVE 05/24/2020 12:00:00 AM EDT MEDENT ([facility]) OFFICE OUTPATIENT VISIT 15 MINUTES 05/01/2020 12:00:00 AM EDT MED[facility] ([facility]) Results ID Date Data Source [id number] 09/26/2020 08:54:00 AM EDT MED[facility] ([facility]) Name Value Range Interpretation Code Description Data Althea rce(s) Supporting Document(s) Vitamin B12 Level 504 pg/mL [facility] ([facility]) VITAMIN B12 NORMAL RANGE NORMAL 247 - 911 PG/ML INDETERMINATE 211 - 246 PG/ML DEFICIENT LESS THAN 211 PG/ML Folate Laboratory test result [facility] ([facility]) FOLATE NORMAL RANGE NORMAL GREATER THAN 5.4 NG/ML INDETERMINATE 3.4-5.4 NG/ML DEFICIENT LESS THAN 3.4 NG/ML ID Date Data Source [id number] 09/26/2020 08:53:00 AM EDT MED[facility] ([facility]) Name Value Range Interpretation Code Description Data Althea rce(s) Supporting Document(s) Triglyceride [Mass/volume] in Serum or Plasma 29 mg/dL 30-150 MED[facility] ([facility]) Cholesterol [Mass/volume] in Serum or Plasma 167 mg/dL 131-200 [facility] ([facility]) Cholesterol in LDL [Mass/volume] in Serum or Plasma by calcu lation 94 CALC 50-159 [facility] ([facility]) Cholesterol in HDL [Mass/volume] in Serum or Plasma 67 mg/dL 35-60 [facility] ([facility]) ID Date Data Source [id number] 09/26/2020 08:53:00 AM EDT [facility] Name Value Range Interpretation Code Description Data Althea rce(s) Supporting Document(s) Glucose [Mass/volume] in Serum or Plasma 97 mg/dL 74-99 [facility] ([facility]) 100-125 mg/dL PRE-DIABETES/FASTING >126 mg/dL DIABETES/FASTING Creatinine 0.8 mg/dL 0.6-1.3 [facility] Urea nitrogen [Mass/volume] in Serum or Plasma 13 mg/dL 7-18 [facility] ([facility]) Sodium [Moles/volume] in Serum or Plasma 137 meq/L 136-145 [facility] ([facility]) Potassium [Moles/volume] in Serum or Plasma 4.7 meq/L 3.5-5.1 [facility] ([facility]) Carbon dioxide, total [Moles/volume] in Serum or Plasma 30 meq/L 21 -32 [facility] ([facility]) Chloride [Moles/volume] in Serum or Plasma 100 meq/L 98-107 [facility] ([facility]) Calcium [Mass/volume] in Serum or Plasma 9.6 mg/dL 8.5-10.1 [facility] ([facility]) Glomerular filtration rate/1.73 sq M pre dicted among non-blacks [Volume Rate/Area] in Serum or Plasma by Creatinine-based formula (MDRD) Laboratory test result [facility] ([facility] ) Glomerular filtration rate/1.73 sq M pre dicted among blacks [Volume Rate/Area] in Serum or Plasma by Creatinine-based formula (MDRD) Laboratory test result [facility] ([facility]) <content>CHRONIC KIDNEY DISEASE STAGING PER NKF</content>
<content></content>
<content>STAGE I & II GFR >= 60 NORMAL TO MILDLY DECREASED</content>
<content>STAGE III GFR 30-59 MODERATELY DECREASED</content>
<content>STAGE IV GFR 15-29 SEVERELY DECREASED</content>
<content>STAGE V GFR <15 VERY LITTLE GFR LEFT</content>
<content>ESRD GFR <15 ON LYFT DRIVER</content>
<content></content> ID Date Data Source [id number] 09/26/2020 08:53:00 AM EDT [facility] Name Value Range Interpretation Code Description Data Althea rce(s) Supporting Document(s) Leukocytes [#/volume] in Blood by Automated count 5.0 x10*3/UL 4.1-10 .9 [facility] ([facility]) Hemoglobin [Mass/volume] in Blood 15.0 g/dL 12.0-18.0 [facility] ([facility]) Erythrocytes [#/volume] in Blood by Automated count 4.88 x10*6/UL 4.2 0-6.30 [facility] Hematocrit [Volume Fraction] of Blood by Automated count 43.5 % 3 7.0-51.0 [facility] ([facility]) MCV 89.0 fL 80.0-97.0 [facility] MCH 30.8 pg 26.0-32.0 [facility] MCHC 34.6 g/dL 31.0-38.0 [facility] Platelets [#/volume] in Blood by Automated count 245 x10*3/UL 140-440 [facility] Erythrocyte distribution width [Ratio] by Automated count 13.1 % 11.6-13.7 [facility] ([facility]) Mid % 5.9 % 1.7-9.3 [facility] Lymph % 21.9 % 10.0-58.5 [facility] ([facility]) MPV 7.5 FL 7.8-11.0 [facility] Neut % 72.2 % 37.0-92.0 [facility]) Lymph # 1.1 x10*3/UL 0.6-4.1 [facility] ([facility]) Mid # 0.3 x10*3/UL 0.1-0.6 [facility] ([facility]) Neut # 3.6 x10*3/UL 2.0-7.8 [facility] ([facility]) ID Date Data Source URINE CULTURE 07/12/2020 12:00:00 AM EDT [facility] ([facility]) Name Value Range Interpretation Code Description Data Althea rce(s) Supporting Document(s) URINE CULTURE [facility] ([facility]) ID Date Data Source UA URINALYSIS 07/12/2020 12:00:00 AM EDT [facility] ([facility]) Name Value Range Interpretation Code Description Data Althea rce(s) Supporting Document(s) UA URINALYSIS [facility] ([facility]) ID Date Data Source [id number] 06/01/2020 08:21:00 AM EDT [facility] Name Value Range Interpretation Code Description Data Althea rce(s) Supporting Document(s) Prostate specific Ag [Mass/volume] in Serum or Plasma 1.62 ng/mL [facility] ([facility]) This assay was performed on the Siemens Dimension EXL using the B- Galactosidase/CPRG methodology and should not be compared interchangeably with other methods. The PSA should not be used alone as a screening test for the presence or absence of malignant disease. ID Date Data Source [id number] 05/01/2020 02:24:00 PM EDT [facility] ([facility]) Name Value Range Interpretation Code Description Data Althea rce(s) Supporting Document(s) Urine Appearance Laboratory test result Abnormal (applies to non-numeric results) [facility] ([facility]) Urine Color Laboratory test result [facility] T ([facility]) Urine PH 7.0 units 5.0-9.0 [facility]) Specific gravity of Urine 1.015 1.005-1.030 [facility] ([facility]) Urine Leukocytes Laboratory test result [facility] ([facility]) Urine Blood Laboratory test result MED[facility] T ([facility]) Urine Protein Laboratory test result 0-0 [facility] ([facility]) Glucose [Presence] in Urine Laboratory test result [facility] ([facility]) Bilirubin.total [Mass/volume] in Serum or Plasma Laboratory test resu lt [facility] ([facility]) Urine Ketone Laboratory test result MEDE NT ([facility]) Urine Nitrite Laboratory test result [facility] ([facility]) Urine Urobilinogen 0.2 mg/dL 0.2-1.0 [facility] ([facility]) Procedure Social History Code Duration Value Status Description Data Source(s ) Smoking 12/10/2020 12:00:00 AM EDT Non Smoker completed Non Smoke r [facility] ([facility], ) Smoking 08/21/2020 12:00:00 AM EDT Never Smoker completed Never S moker eCW1 ([facility]) Smoking 08/21/2020 12:00:00 AM EDT Never Smoker completed Never S moker eCW1 ([facility]) Smoking 07/12/2020 12:00:00 AM EDT Never Smoker completed Never S moker eCW1 ([facility]) Smoking 07/12/2020 12:00:00 AM EDT Never Smoker completed Never S moker eCW1 ([facility]) Smoking 05/24/2020 12:00:00 AM EDT Patient has never smoked co mpleted Patient has never smoked [facility] ([facility]) Smoking 01/30/2020 12:00:00 AM EST Never Smoker completed Never S moker eCW1 ([facility]) Smoking 12/20/2019 12:00:00 AM EST Never Smoker completed Never S moker eCW1 ([facility]) Vital Signs ID Date Data Source UNK Name Value Range Interpretation Code Description Data Source(s) Systolic blood pressure 114 mm[Hg] 114 mm[Hg] [facility] Diastolic blood pressure 62 mm[Hg] 62 mm[Hg] [facility] ([facility]) Oxygen saturation in Arterial blood by Pulse oximetry 94 % 94 % [facility] ([facility]) Body height 68 [in_i] 68 [in_i] [facility] 5'8" Body weight 183.00 [lb_av] 183.00 [lb_av] [facility] T ([facility]) Body mass index (BMI) [Ratio] 27.8 kg/m2 27.8 k g/m2 [facility] ([facility]) Witter body weight 154 [lb_av] 154 [lb_av] [facility] T ([facility]) Body weight 83.009 kg 83.009 kg [facility] ([facility]) Body surface area Derived from formula 1.97 m2 1.97 m2 [facility] ([facility]) Heart rate 60 /min 60 /min [facility] ([facility]) Body mass index (BMI) [Ratio] 26.6 kg/m2 26.6 k g/m2 [facility] ([facility] Body height 68 [in_i] 68 [in_i] [facility] ([facility] 5'8" Body weight 175.00 [lb_av] 175.00 [lb_av] [facility] T ([facility] Systolic blood pressure 116 mm[Hg] 116 mm[Hg] M EDENT ([facility] Diastolic blood pressure 68 mm[Hg] 68 mm[Hg] [facility] ([facility] Heart rate 58 /min 58 /min [facility] ([facility] Systolic blood pressure 118 mm[Hg] 118 mm[Hg] [facility] ([facility]) Diastolic blood pressure 66 mm[Hg] 66 mm[Hg] [facility] ([facility]) Heart rate 58 /min 58 /min [facility] ([facility]) Body height 67.25 [in_i] 67.25 [in_i] [facility] ([facility]) 5'7.25" Body weight 177.12 [lb_av] 177.12 [lb_av] [facility] T ([facility]) Oxygen saturation in Arterial blood by Pulse oximetry 98 % 98 % [facility] ([facility]) Air Body mass index (BMI) [Ratio] 27.5 kg/m2 27.5 k g/m2 [facility] ([facility]) Body weight 181 [lb_av] 181 [lb_av] eCW1 ([facility]) Body height 64 [in_i] 64 [in_i] eCW1 ([facility]) Body mass index (BMI) [Ratio] 31.07 kg/m2 31.07 kg/m2 eCW1 ([facility]) Heart rate 66 /min 66 /min eCW1 ([facility]) Respiratory rate 18 /min 18 /min eCW1 ([facility]) Body temperature 97.6 [degF] 97.6 [degF] eCW1 ( [facility]) Systolic blood pressure 124 mm[Hg] 124 mm[Hg] e CW1 ([facility]) Diastolic blood pressure 76 mm[Hg] 76 mm[Hg] eCW1 ([facility]) Body weight 180 [lb_av] 180 [lb_av] eCW1 ([facility]) Body height 64 [in_i] 64 [in_i] eCW1 ([facility]) Body mass index (BMI) [Ratio] 30.89 kg/m2 30.89 kg/m2 eCW1 ([facility]) Heart rate 63 /min 63 /min eCW1 ([facility]) Respiratory rate 18 /min 18 /min eCW1 ([facility]) Body temperature 97.6 [degF] 97.6 [degF] eCW1 ( [facility]) Systolic blood pressure 127 mm[Hg] 127 mm[Hg] e CW1 ([facility]) Diastolic blood pressure 72 mm[Hg] 72 mm[Hg] eCW1 ([facility]) Body mass index (BMI) [Ratio] 28.4 kg/m2 28.4 k g/m2 [facility] ([facility]) Systolic blood pressure 120 mm[Hg] 120 mm[Hg] M EDENT ([facility]) Diastolic blood pressure 70 mm[Hg] 70 mm[Hg] [facility] ([facility]) Heart rate 70 /min 70 /min [facility] ([facility]) Body height 67.25 [in_i] 67.25 [in_i] [facility] 5'7.25" Body weight 183.00 [lb_av] 183.00 [lb_av] MEDEN T ([facility]) Body mass index (BMI) [Ratio] 29.1 kg/m2 29.1 k g/m2 [facility] ([facility]) Heart rate 60 /min 60 /min [facility] ([facility]) Systolic blood pressure 114 mm[Hg] 114 mm[Hg] M EDENT ([facility]) Diastolic blood pressure 70 mm[Hg] 70 mm[Hg] [facility] ([facility]) Body height 67.25 [in_i] 67.25 [in_i] [facility] 5'7.25" Body weight 187.00 [lb_av] 187.00 [lb_av] MEDEN T ([facility]) Oxygen saturation in Arterial blood by Pulse oximetry 97 % 97 % [facility] ([facility]) RM Air Intraocular pressure Right eye 15 mm[Hg] 15 mm [Hg] [facility] ([facility]) Intraocular pressure Left eye 17 mm[Hg] 17 mm[ Hg] [facility] ([facility]) -SM, Applanation 02:59 PM Diastolic blood pressure 78 mm[Hg] 78 mm[Hg] [facility] ([facility]) RT Arm Systolic blood pressure 126 mm[Hg] 126 mm[Hg] M EDENT ([facility]) RT Arm Heart rate 88 /min 88 /min [facility] ([facility]) Body height 67.25 [in_i] 67.25 [in_i] [facility] 5'7.25" Body weight 182.50 [lb_av] 182.50 [lb_av] MEDEN T ([facility]) Body mass index (BMI) [Ratio] 28.4 kg/m2 28.4 k g/m2 [facility] ([facility]) Body height 68 [in_i] 68 [in_i] [facility] ([facility] 5'8" Body weight 175.00 [lb_av] 175.00 [lb_av] MEDEN T ([facility] Systolic blood pressure 120 mm[Hg] 120 mm[Hg] M EDENT ([facility] Diastolic blood pressure 66 mm[Hg] 66 mm[Hg] [facility] ([facility] Heart rate 60 /min 60 /min [facility] ([facility] Body mass index (BMI) [Ratio] 26.6 kg/m2 26.6 k g/m2 [facility] ([facility] Body weight 179 [lb_av] 179 [lb_av] eCW1 ([facility]) Body height 64 [in_i] 64 [in_i] W1 ([facility]) Body mass index (BMI) [Ratio] 30.72 kg/m2 30.72 kg/m2 W1 ([facility]) Systolic blood pressure 130 mm[Hg] 130 mm[Hg] e CW1 ([facility]) Diastolic blood pressure 82 mm[Hg] 82 mm[Hg] eCW1 ([facility]) Body weight 184.8 [lb_av] 184.8 [lb_av] eCW1 ([facility]) Body height 64 [in_i] 64 [in_i] eCW1 ([facility]) Body mass index (BMI) [Ratio] 31.72 kg/m2 31.72 kg/m2 eCW1 ([facility]) Systolic blood pressure 128 mm[Hg] 128 mm[Hg] e CW1 ([facility]) Diastolic blood pressure 84 mm[Hg] 84 mm[Hg] eCW1 ([facility]) Patient Treatment Plan of Care Planned Activity Planned Date Details Description Data Source (s) 24 HR Fesoterodine Fumarate 4 MG Extended Release Oral Tablet [Toviaz] 07/17/2020 12:00:00 AM EDT eCW1 ([facility]) 24 HR mirabegron 50 MG Extended Release Oral Tablet [M yrbetriq] 07/12/2020 12:00:00 AM EDT eCW1 ([facility]) 24 HR mirabegron 50 MG Extended Release Oral Tablet [M yrbetriq] 07/12/2020 12:00:00 AM EDT eCW1 ([facility])
[2020-12-26] MEDS ORDERED: DRAM1CHW PO (13:25)
--- OUTSIDE RECORDS SUMMARY | 2020-12-26 16:44 | CCD ---
Author Author [facility] Organization [facility] Address Unknown Phone Unavailable Care Team Providers Care Computer Application Developer Name Role Phone Harriett, Toyin HUMAN RESOURCE ANALYST Unavailable Unavailable Harriett, Toyin HUMAN RESOURCE ANALYST Unavailable Unavailable Harriett, Toyin HUMAN RESOURCE ANALYST Unavailable Unavailable Harriett, Toyin HUMAN RESOURCE ANALYST Unavailable Unavailable Harriett, Toyin HUMAN RESOURCE ANALYST Unavailable Unavailable Harriett, Toyin HUMAN RESOURCE ANALYST Unavailable Unavailable Harriett, Toyin HUMAN RESOURCE ANALYST Unavailable Unavailable Harriett, Toyin HUMAN RESOURCE ANALYST Unavailable Unavailable Harriett, Toyin HUMAN RESOURCE ANALYST Unavailable Unavailable Harriett, Toyin HUMAN RESOURCE ANALYST Unavailable Unavailable Harriett, Toyin HUMAN RESOURCE ANALYST Unavailable Unavailable Harriett, Toyin HUMAN RESOURCE ANALYST Unavailable Unavailable Harriett, Toyin HUMAN RESOURCE ANALYST Unavailable Unavailable Harriett, Toyin HUMAN RESOURCE ANALYST Unavailable Unavailable Harriett, Toyin HUMAN RESOURCE ANALYST Unavailable Unavailable Harriett, Toyin HUMAN RESOURCE ANALYST Unavailable Unavailable Harriett, Toyin HUMAN RESOURCE ANALYST Unavailable Unavailable Harriett, Toyin HUMAN RESOURCE ANALYST Unavailable Unavailable Harriett, Toyin HUMAN RESOURCE ANALYST Unavailable Unavailable Harriett, Toyin HUMAN RESOURCE ANALYST Unavailable Unavailable Harriett, Toyin HUMAN RESOURCE ANALYST Unavailable Unavailable Harriett, Toyin HUMAN RESOURCE ANALYST Unavailable Unavailable Harriett, Toyin HUMAN RESOURCE ANALYST Unavailable Unavailable Harriett, Toyin HUMAN RESOURCE ANALYST Unavailable Unavailable Harriett, Toyin HUMAN RESOURCE ANALYST Unavailable Unavailable Harriett, Toyin HUMAN RESOURCE ANALYST Unavailable Unavailable Harriett, Toyin HUMAN RESOURCE ANALYST Unavailable Unavailable Harriett, Toyin HUMAN RESOURCE ANALYST Unavailable Unavailable Harriett, Toyin HUMAN RESOURCE ANALYST Unavailable Unavailable Harriett, Toyin HUMAN RESOURCE ANALYST Unavailable Unavailable Harriett, Toyin HUMAN RESOURCE ANALYST Unavailable Unavailable Harriett, Toyin HUMAN RESOURCE ANALYST Unavailable Unavailable Harriett, Toyin HUMAN RESOURCE ANALYST Unavailable Unavailable Harriett, Toyin HUMAN RESOURCE ANALYST Unavailable Unavailable Harriett, Toyin HUMAN RESOURCE ANALYST Unavailable Unavailable PICKERAL JR, J BRETT PA-C [...] Unavailable Frances Sahni MD Unavailable Unavailable Frances Shani MD Unavailable Unavailable Frances Sahni MD Unavailable Unavailable Kaitlyn B Saleem SOFIA Unavailable Unavailable Kaitlyn B Saleem SOFIA Unavailable Unavailable Kaitlyn B Saleem SOFIA Unavailable Unavailable Kaitlyn B Saleem SOFIA Unavailable Unavailable Frances Sahni MD Unavailable Unavailable [...] is protected by Article 27-F of the [facility] Public Health law. If you continue you may have access to information: Regarding HIV / AIDS; Provided by facilities licensed or operated by the [facility] Office of Mental Health; or Provided by the [facility] Office for People With Developmental Disabilities. If such information is present, then the following [facility] mandated warning applies: This information has been [...] law may result in a fine or fdc sentence or both. A general authorization for the release of medical or other information is NOT sufficient authorization for further disc losure. Family History Family Member Name Family Member Gender Family Member Status Date o f Status Description Data Source(s) Unknown Unknown Problem [facility] ([facility]) Unknown Unknown Problem [facility] ([facility]) Unknown Male Problem MED[facility] ([facility]) Unknown Unknown Problem [facility] ([facility] Encounters Encounter Providers Location Date Indications Data Source(s ) Outpatient Attender: COBY Alfaro/Ruy/Lalo/Kemi dl 12/10/2020 02:30:00 PM EDT MED[facility] ([facility] Outpatient Attender: VEE LUNA [facility] Office 09/17 10:30:00 AM EDT MED[facility] ([facility] Outpatient Attender: Toyin Magaña 08:00:00 AM EDT [facility] ([facility] ) [place] [address] [address] 08/21/2020 12:00:00 AM EDT eCW1 ([facility]) [place] [address] [address] 08/21/2020 12:00:00 AM EDT eCW1 ([facility]) [place] [address] [address] 07/17/2020 12:00:00 AM EDT eCW1 ([facility]) Outpatient [address] [address] 07/12/2020 12:00:00 AM EDT eCW1 ([facility]) Outpatient Attender: BRETT Magaña 0 06/18/2020 01:00:00 PM EDT MEDENT ([facility] ) Outpatient Attender: BRETT Magaña 0 06/01/2020 08:00:00 AM EDT [facility] ([facility] ) Office [facility] Att[facility] 05/24/2020 02:30:00 PM EDT [facility] ([facility]) Outpatient Attender: Toyin Magaña 01:40:00 PM EDT MEDENT ([facility] ) Outpatient Attender: VEE LUNA [facility] Office 01/16 12:45:00 PM EST MEDENT ([facility] (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 COVID-19 VACCINE [facility] 04/07/2020 12:00:00 AM EST completed [place] Vaccine Series Complete: YESThis Data wa s Submitted to [facility] Via [employer]. COVID-19 VACCINE [facility] 03/17/2020 12:00:00 AM EST completed [employer] Vaccine Series Complete: NOThis Data was Submitted to [facility] Via [employer]. Medications Medication Brand Name Start Date Product Form Dose Route Admi nistrative Instructions Pharmacy Instructions Status Indications Reaction Description Data Source(s) 24 HR Fesoterodine Fumarate 4 MG Extende d Release Oral Tablet [Toviaz] Toviaz 4 MG Toviaz 4 MG 07/17/2020 12:00:00 AM EDT 1.0 {tablet} active Toviaz 4 MG eCW1 ([facility]) 24 HR Fesoterodine Fumarate 4 MG Extende d Release Oral Tablet [Toviaz] Toviaz 4 MG Toviaz 4 MG 07/17/2020 12:00:00 AM EDT 1.0 {tablet} suspended Toviaz 4 MG eCW1 (On [facility]) 24 HR Fesoterodine Fumarate 4 MG Extende d Release Oral Tablet [Toviaz] Toviaz 4 MG Toviaz 4 MG 07/17/2020 12:00:00 AM EDT 1.0 {tablet} suspended Toviaz 4 MG eCW1 (On [facility]) 24 HR mirabegron 50 MG Extended Release Oral Tablet [M yrbetriq] Myrbetriq 50 MG Myrbetriq 50 MG 07/12/2020 12:00:00 AM EDT 1.0 {tablet} suspended Myrbetriq 50 MG eCW1 (On [facility]) 24 HR mirabegron 50 MG Extended Release Oral Tablet [M yrbetriq] Myrbetriq 50 MG Myrbetriq 50 MG 07/12/2020 12:00:00 AM EDT 1.0 {tablet} active Myrbetriq 50 MG eCW1 (On [facility] Of [facility]) 24 HR mirabegron 50 MG Extended Release Oral Tablet [M yrbetriq] Myrbetriq 50 MG Myrbetriq 50 MG 07/12/2020 12:00:00 AM EDT 1.0 {tablet} active Myrbetriq 50 MG eCW1 (On [facility]) 24 HR mirabegron 50 MG Extended Release Oral Tablet [M yrbetriq] Myrbetriq 50 MG Myrbetriq 50 MG 07/12/2020 12:00:00 AM EDT 1.0 {tablet} suspended Myrbetriq 50 MG eCW1 (On [facility]) Prednisone 10 MG Oral Tablet Prednisone 06/18/2020 12:00:00 AM EDT ORAL completed MEDENT ([facility]) 24 HR Oxybutynin chloride 10 MG Extended Release Oral Tablet Oxybutynin Chloride ER 06/18/2020 12:00:00 AM EDT ORAL active MEDENT ([facility]) Tamsulosin hydrochloride 0.4 MG Oral Capsule Tamsulosin HCL 05/01/2020 12:00:00 AM EDT ORAL completed MEDENT ([facility]) Covid-19 vaccine, Unspecified 04/07/2020 12:00:00 AM EST completed [facility]) Medication administered onsite Covid-19 vaccine, Unspecified 03/18/2020 12:00:00 AM EST completed [facility]) Medication administered onsite Insurance Providers Payer name Policy type / Coverage type Policy ID Covered libertarian ID Covered libertarian's relationship to lerma Policy L[place]a Plan Information Medicare Blue Ppo Commercial [id number] Self Medicare Advantage BCBS [place] Part B [id number] Self Medicare Blue Ppo Commercial [id number] Self [id number] Medicare Blue Ppo Commercial [id number] Self Medicare Blue Ppo Commercial [id number] Self [id number] Medicare Blue Ppo Commercial [id number] Self [id number] Medicare Blue Ppo Commercial [id number] Self [id number] MEDICARE BLUE [id number] P VYM [id number] MEDICARE [id number] SP [id number] T [facility] GE PART A [id number] SP [id number] [place] Primary [id number] [facility] Medigap Part B [id number] Self MEDICARE BLUE PPO [id number] SP [id number] BS Medicare Blue Ppo/Hmo Commercial [id number] Self [id number] [employer] BCBS B [id number] S VYM [id number] BLUE CROSS BLUE SHIELD -O/P [id number] 18 [id number] BLUE CROSS BLUE SHIELD -CLINIC [id number] 1 8 [id number] [facility] [facility] [place] Commercial [id number] Self V [id number] BLUE CROSS BLUE SHIELD MCR -CLINIC [id number] 18 [id number] [facility] [facility] [place] Commercial [id number] Self V [id number] BLUE CROSS BLUE SHIELD MCR -OP [id number] 18 [id number] BLUE CROSS BLUE SHIELD MCR -PROFEE [id number] 18 [id number] [employer] [facility] [place] Commercial [id number] Self V [id number] [facility] [facility] [place] Commercial [id number] Self V [id number] [facility] [facility] [place] Commercial [id number] Self V [id number] [facility] [facility] [place] Commercial [id number] Self V [id number] MEDICARE BLUE PPO 306 [id number] SP [id number] BS Medicare Blue Ppo/Hmo Commercial [id number] Self [id number] [employer] BCBS B [id number] S VYM [id number] MEDICARE BLUE PPO 306 [id number] SP [id number] [facility] [facility] BS [id number] 18 [id number] [employer] [facility] Commercial [id number] Self V [id number] ANSI-Medicare Part B [id number] EXCELLUS B/C [id number] P [id number] Problems, Conditions, and Diagnoses Code Display Name Description Problem Type Effective Dates Data Source(s) R35.0 Urinary frequency Urinary frequency Problem 07/12/2020 12:00:00 AM EDT eCW1 ([facility]) N40.1 Lower urinary tract symptoms due to george gn prostatic hypertrophy Benign prostatic hyperplasia with lower urinary tract symptoms Problem 07/12/2020 12:00:00 AM EDT eCW1 ([facility]) D18.01 [id number] [place] angioma Problem 12/20/2019 12:00:00 A M EST eCW1 ([facility]) D22.71 [id number] Melanocytic nevi of right lower limb, inc luding hip Problem 12/20/2019 12:00:00 AM EST eCW1 ([facility]) D22.72 [id number] Melanocytic nevi of left lower l imb, including hip Problem 12/20/2019 12:00:00 AM EST eCW1 ([facility]) Surgeries/Procedures Procedure Description Date Indications Data Source(s) OFFICE OUTPATIENT NEW 30 MINUTES 12/10/2020 12:00:00 A M EDT ERIC ([facility], ) OFFICE OUTPATIENT VISIT 15 MINUTES 10/11/2020 12:00:00 AM EDT MEDENT ([facility] ECG ROUTINE ECG W/LEAST 12 LDS W/I&R 09/26/2020 12:00: 00 AM EDT MEDENT ([facility]) OFFICE OUTPATIENT VISIT 25 MINUTES 09/26/2020 12:00:00 AM EDT MEDENT ([facility]) uro PVR (Post Voiding Residual) Bladder Scan 12:00:00 AM EDT eCW1 ([facility]) OFFICE OUTPATIENT VISIT 15 MINUTES 06/18/2020 12:00:00 AM EDT MEDENT ([facility]) OFFICE OUTPATIENT VISIT 15 MINUTES 06/01/2020 12:00:00 AM EDT MED[facility] ([facility]) 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 05/24/2020 12:00:00 AM EDT MED[facility] ([facility]) [facility] MEDICAL XM&EVAL COMPRHNSV ESTAB PT 1/> VST 05/24 12:00:00 AM EDT MED[facility] ([facility]) DETERMINATION REFRACTIVE STATE 05/24/2020 12:00:00 AM EDT MED[facility] ([facility]) COMPUTERIZED OPHTHALMIC IMAGING OPTIC NERVE 05/24/2020 12:00:00 AM EDT MED[facility] ([facility]) OFFICE OUTPATIENT VISIT 15 MINUTES 05/01/2020 12:00:00 AM EDT MEDENT ([facility]) Results ID Date Data Source [id number] 09/26/2020 08:54:00 AM EDT MEDENT ([facility]) Name Value Range Interpretation Code Description Data Althea rce(s) Supporting Document(s) Vitamin B12 Level 504 pg/mL [facility] ([facility]) VITAMIN B12 NORMAL RANGE NORMAL 247 - 911 PG/ML INDETERMINATE 211 - 246 PG/ML DEFICIENT LESS THAN 211 PG/ML Folate Laboratory test result MED[facility] ([facility]) FOLATE NORMAL RANGE NORMAL GREATER THAN 5.4 NG/ML INDETERMINATE 3.4-5.4 NG/ML DEFICIENT LESS THAN 3.4 NG/ML ID Date Data Source [id number] 09/26/2020 08:53:00 AM EDT MEDENT ([facility]) Name Value Range Interpretation Code Description Data Althea rce(s) Supporting Document(s) Triglyceride [Mass/volume] in Serum or Plasma 29 mg/dL 30-150 MED[facility] ([facility]) Cholesterol [Mass/volume] in Serum or Plasma 167 mg/dL 131-200 MED[facility] ([facility]) Cholesterol in LDL [Mass/volume] in Serum or Plasma by calcu lation 94 CALC 50-159 [facility] ([facility]) Cholesterol in HDL [Mass/volume] in Serum or Plasma 67 mg/dL 35-60 MED[facility] ([facility]) ID Date Data Source [id number] 09/26/2020 08:53:00 AM EDT [facility]) Name Value Range Interpretation Code Description Data Althea rce(s) Supporting Document(s) Glucose [Mass/volume] in Serum or Plasma 97 mg/dL 74-99 MED[facility] ([facility]) 100-125 mg/dL PRE-DIABETES/FASTING >126 mg/dL DIABETES/FASTING Creatinine 0.8 mg/dL 0.6-1.3 [facility] Urea nitrogen [Mass/volume] in Serum or Plasma 13 mg/dL 7-18 [facility] ([facility]) Sodium [Moles/volume] in Serum or Plasma 137 meq/L 136-145 [facility] ([facility]) Potassium [Moles/volume] in Serum or Plasma 4.7 meq/L 3.5-5.1 [facility] ([facility]) Carbon dioxide, total [Moles/volume] in Serum or Plasma 30 meq/L 21 -32 [facility] ([facility]) Chloride [Moles/volume] in Serum or Plasma 100 meq/L 98-107 [facility] ([facility]) Calcium [Mass/volume] in Serum or Plasma 9.6 mg/dL 8.5-10.1 [facility] ([facility]) Glomerular filtration rate/1.73 sq M pre dicted among non-blacks [Volume Rate/Area] in Serum or Plasma by Creatinine-based formula (MDRD) Laboratory test result [facility] ([facility] ) Glomerular filtration rate/1.73 sq M pre dicted among blacks [Volume Rate/Area] in Serum or Plasma by Creatinine-based formula (MDRD) Laboratory test result [facility] ([facility]) <content>CHRONIC KIDNEY DISEASE STAGING PER NKF</content>
<content></content>
<content>STAGE I & II GFR >= 60 NORMAL TO MILDLY DECREASED</content>
<content>STAGE III GFR 30-59 MODERATELY DECREASED</content>
<content>STAGE IV GFR 15-29 SEVERELY DECREASED</content>
<content>STAGE V GFR <15 VERY LITTLE GFR LEFT</content>
<content>ESRD GFR <15 ON FACILITY MAINTENANCE SUPERVISOR</content>
<content></content> ID Date Data Source [id number] 09/26/2020 08:53:00 AM EDT [facility] Name Value Range Interpretation Code Description Data Althea rce(s) Supporting Document(s) Leukocytes [#/volume] in Blood by Automated count 5.0 x10*3/UL 4.1-10 .9 [facility] ([facility]) Hemoglobin [Mass/volume] in Blood 15.0 g/dL 12.0-18.0 [facility] ([facility]) Erythrocytes [#/volume] in Blood by Automated count 4.88 x10*6/UL 4.2 0-6.30 [facility] Hematocrit [Volume Fraction] of Blood by Automated count 43.5 % 3 7.0-51.0 [facility] ([facility]) MCV 89.0 fL 80.0-97.0 [facility] MCH 30.8 pg 26.0-32.0 [facility] MCHC 34.6 g/dL 31.0-38.0 [facility] Platelets [#/volume] in Blood by Automated count 245 x10*3/UL 140-440 [facility] Erythrocyte distribution width [Ratio] by Automated count 13.1 % 11.6-13.7 [facility] ([facility]) Mid % 5.9 % 1.7-9.3 [facility] Lymph % 21.9 % 10.0-58.5 [facility] MPV 7.5 FL 7.8-11.0 [facility] Neut % 72.2 % 37.0-92.0 [facility] Lymph # 1.1 x10*3/UL 0.6-4.1 [facility] ([facility]) Mid # 0.3 x10*3/UL 0.1-0.6 [facility] ([facility]) Neut # 3.6 x10*3/UL 2.0-7.8 [facility] ([facility]) ID Date Data Source URINE CULTURE 07/12/2020 12:00:00 AM EDT [facility] ([facility]) Name Value Range Interpretation Code Description Data Althea rce(s) Supporting Document(s) URINE CULTURE [facility] ([facility]) ID Date Data Source UA URINALYSIS 07/12/2020 12:00:00 AM EDT [facility] ([facility]) Name Value Range Interpretation Code Description Data Althea rce(s) Supporting Document(s) UA URINALYSIS [facility] ([facility]) ID Date Data Source [id number] 06/01/2020 08:21:00 AM EDT [facility]) Name Value Range Interpretation Code Description Data Althea rce(s) Supporting Document(s) Prostate specific Ag [Mass/volume] in Serum or Plasma 1.62 ng/mL [facility] ([facility]) This assay was performed on the Siemens Dimension EXL using the B- Galactosidase/CPRG methodology and should not be compared interchangeably with other methods. The PSA should not be used alone as a screening test for the presence or absence of malignant disease. ID Date Data Source [id number] 05/01/2020 02:24:00 PM EDT [facility] ([facility]) Name Value Range Interpretation Code Description Data Althea rce(s) Supporting Document(s) Urine Appearance Laboratory test result Abnormal (applies to non-numeric results) [facility] ([facility]) Urine Color Laboratory test result [facility] ([facility]) Urine PH 7.0 units 5.0-9.0 [facility]) Specific gravity of Urine 1.015 1.005-1.030 [place] [facility] ([facility]) Urine Leukocytes Laboratory test result [facility] ([facility]) Urine Blood Laboratory test result [facility] ([facility]) Urine Protein Laboratory test result 0-0 [facility] ([facility]) Glucose [Presence] in Urine Laboratory test result [facility] ([facility]) Bilirubin.total [Mass/volume] in Serum or Plasma Laboratory test resu lt [facility] ([facility]) Urine Ketone Laboratory test result [facility] ([facility]) Urine Nitrite Laboratory test result [facility] ([facility]) Urine Urobilinogen 0.2 mg/dL 0.2-1.0 [facility] ([facility]) Procedure Social History Code Duration Value Status Description Data Source(s ) Smoking 12/10/2020 12:00:00 AM EDT Non Smoker completed Non Smoke r MEDENT ([facility], ) Smoking 08/21/2020 12:00:00 AM EDT Never Smoker completed Never S moker eCW1 ([facility]) Smoking 08/21/2020 12:00:00 AM EDT Never Smoker completed Never S moker eCW1 ([facility]) Smoking 07/12/2020 12:00:00 AM EDT Never Smoker completed Never S moker eCW1 ([facility]) Smoking 07/12/2020 12:00:00 AM EDT Never Smoker completed Never S moker eCW1 ([facility]) Smoking 05/24/2020 12:00:00 AM EDT Patient has never smoked co mpleted Patient has never smoked [facility] ([facility]) Smoking 01/30/2020 12:00:00 AM EST Never Smoker completed Never S moker eCW1 ([facility]) Smoking 12/20/2019 12:00:00 AM EST Never Smoker completed Never S moker eCW1 ([facility]) Vital Signs ID Date Data Source UNK Name Value Range Interpretation Code Description Data Source(s) Oxygen saturation in Arterial blood by Pulse oximetry 94 % 94 % [facility] Systolic blood pressure 114 mm[Hg] 114 mm[Hg] M EDENT ([facility]) Body height 68 [in_i] 68 [in_i] [facility] ([facility]) 5'8" Body weight 183.00 [lb_av] 183.00 [lb_av] MEDEN T ([facility]) Body mass index (BMI) [Ratio] 27.8 kg/m2 27.8 k g/m2 [facility] ([facility]) [place] body weight 154 [lb_av] 154 [lb_av] MEDEN T ([facility]) Body weight 83.009 kg 83.009 kg [facility] ([facility]) Body surface area Derived from formula 1.97 m2 1.97 m2 [facility] ([facility]) Diastolic blood pressure 62 mm[Hg] 62 mm[Hg] [facility] ([facility]) Heart rate 60 /min 60 /min [facility] ([facility]) Body mass index (BMI) [Ratio] 26.6 kg/m2 26.6 k g/m2 MED[facility] ([facility] Body height 68 [in_i] 68 [in_i] [facility] ([facility] 5'8" Body weight 175.00 [lb_av] 175.00 [lb_av] MEDEN T ([facility] Systolic blood pressure 116 mm[Hg] 116 mm[Hg] M EDENT ([facility] Diastolic blood pressure 68 mm[Hg] 68 mm[Hg] [facility] ([facility] Heart rate 58 /min 58 /min [facility] ([facility] Systolic blood pressure 118 mm[Hg] 118 mm[Hg] ED[facility] ([facility]) Diastolic blood pressure 66 mm[Hg] 66 mm[Hg] [facility] ([facility]) Heart rate 58 /min 58 /min MED[facility] ([facility]) Body height 67.25 [in_i] 67.25 [in_i] [facility] ([facility]) 5'7.25" Body weight 177.12 [lb_av] 177.12 [lb_av] MEDEN T ([facility]) Oxygen saturation in Arterial blood by Pulse oximetry 98 % 98 % [facility] ([facility]) Air Body mass index (BMI) [Ratio] 27.5 kg/m2 27.5 k g/m2 [facility] ([facility]) Body weight 181 [lb_av] 181 [lb_av] eCW1 ([facility]) Body height 64 [in_i] 64 [in_i] eCW1 ([facility]) Body mass index (BMI) [Ratio] 31.07 kg/m2 31.07 kg/m2 eCW1 ([facility]) Heart rate 66 /min 66 /min eCW1 ([facility]) Respiratory rate 18 /min 18 /min eCW1 ([facility]) Body temperature 97.6 [degF] 97.6 [degF] eCW1 ( [facility]) Systolic blood pressure 124 mm[Hg] 124 mm[Hg] e CW1 ([facility]) Diastolic blood pressure 76 mm[Hg] 76 mm[Hg] eCW1 ([facility]) Body weight 180 [lb_av] 180 [lb_av] eCW1 ([facility]) Body height 64 [in_i] 64 [in_i] eCW1 ([facility]) Body mass index (BMI) [Ratio] 30.89 kg/m2 30.89 kg/m2 eCW1 ([facility] [facility]) Heart rate 63 /min 63 /min eCW1 ([facility]) Respiratory rate 18 /min 18 /min eCW1 ([facility]) Body temperature 97.6 [degF] 97.6 [degF] eCW1 ( [facility]) Systolic blood pressure 127 mm[Hg] 127 mm[Hg] e CW1 ([facility]) Diastolic blood pressure 72 mm[Hg] 72 mm[Hg] eCW1 ([facility]) Body mass index (BMI) [Ratio] 28.4 kg/m2 28.4 k g/m2 MEDENT ([facility]) Systolic blood pressure 120 mm[Hg] 120 mm[Hg] M EDENT ([facility]) Diastolic blood pressure 70 mm[Hg] 70 mm[Hg] MEDENT ([facility]) Heart rate 70 /min 70 /min MEDENT ([facility]) Body height 67.25 [in_i] 67.25 [in_i] [facility] 5'7.25" Body weight 183.00 [lb_av] 183.00 [lb_av] MEDEN T ([facility]) Body mass index (BMI) [Ratio] 29.1 kg/m2 29.1 k g/m2 MEDENT ([facility]) Heart rate 60 /min 60 /min MEDENT ([facility]) Systolic blood pressure 114 mm[Hg] 114 mm[Hg] M EDENT ([facility]) Diastolic blood pressure 70 mm[Hg] 70 mm[Hg] MEDENT ([facility]) Body height 67.25 [in_i] 67.25 [in_i] [facility] 5'7.25" Body weight 187.00 [lb_av] 187.00 [lb_av] MEDEN T ([facility]) Oxygen saturation in Arterial blood by Pulse oximetry 97 % 97 % MEDENT ([facility]) RM Air Intraocular pressure Right eye 15 mm[Hg] 15 mm [Hg] MEDENT ([facility]) Intraocular pressure Left eye 17 mm[Hg] 17 mm[ Hg] MEDENT ([facility]) -SM, Applanation 02:59 PM Diastolic blood pressure 78 mm[Hg] 78 mm[Hg] MEDENT ([facility]) RT Arm Systolic blood pressure 126 mm[Hg] 126 mm[Hg] M EDENT ([facility]) RT Arm Heart rate 88 /min 88 /min MEDENT ([facility]) Body height 67.25 [in_i] 67.25 [in_i] [facility]ENT [facility] 5'7.25" Body weight 182.50 [lb_av] 182.50 [lb_av] MEDEN T ([facility]) Body mass index (BMI) [Ratio] 28.4 kg/m2 28.4 k g/m2 MEDENT ([facility]) Body height 68 [in_i] 68 [in_i] [...] Body weight 179 [lb_av] 179 [lb_av] eCW1 ([facility]) Body height 64 [in_i] 64 [in_i] W1 ([facility]) Body mass index (BMI) [Ratio] 30.72 kg/m2 30.72 kg/m2 W1 ([facility]) Systolic blood pressure 130 mm[Hg] 130 mm[Hg] e CW1 ([facility]) Diastolic blood pressure 82 mm[Hg] 82 mm[Hg] eCW1 ([facility]) Body weight 184.8 [lb_av] 184.8 [lb_av] eCW1 ([facility]) Body height 64 [in_i] 64 [in_i] eCW1 ([facility]) Body mass index (BMI) [Ratio] 31.72 kg/m2 31.72 kg/m2 eCW1 ([facility]) Systolic blood pressure 128 mm[Hg] 128 mm[Hg] e CW1 ([facility]) Diastolic blood pressure 84 mm[Hg] 84 mm[Hg] eCW1 ([facility]) Patient Treatment Plan of Care Planned Activity Planned Date Details Description Data Source (s) 24 HR Fesoterodine Fumarate 4 MG Extended Release Oral Tablet [Toviaz] 07/17/2020 12:00:00 AM EDT eCW1 ([facility]) 24 HR mirabegron 50 MG Extended Release Oral Tablet [M yrbetriq] 07/12/2020 12:00:00 AM EDT eCW1 ([facility]) 24 HR mirabegron 50 MG Extended Release Oral Tablet [M yrbetriq] 07/12/2020 12:00:00 AM EDT eCW1 ([facility])
== END 2020-12-26 16:37 | disposition left against medical advice (07) ==
LOC: M ED 13:13
DX: Z53.21 Procedure and treatment not carried out due to patient leaving prior to being seen by health care provider (principal)

== ENCOUNTER → 2021-01-24 | Outpatient (CLI) | payer MEDICARE ==
[~2021-01-24] MED LIST changes: +DRAM1CHW PO
== END ==
LOC: M SLEEP 20:00
PROVIDERS: ATTEND Physician Assistant
DX: R06.83 Snoring (principal)

== ENCOUNTER → 2021-02-18 | Outpatient (CLI) | payer MEDICARE ==
--- NOTE | 2021-02-19 15:43 | SLEEPCENT ---
DATE: 02/18/2021 ORDERED BY: MAC Joseph Nocturnal polysomnography was performed for the titration of pressure therapy in this patient with obstructive sleep apnea syndrome, apnea-hypopnea index of 24. For testing a ResMed AirFit N20 nasal mask of large size with a chin strap was used, 4 cm of water pressure were applied to the circuit, and the lights were extinguished. Seven hours and 15 minutes of data were reviewed. There were 335 minutes of sleep identified. Sleep latency was short at 4.5 minutes. REM latency was mildly prolonged at 165 minutes. Sleep architecture was good with four REM cycles. Overall sleep efficiency was 78.1%. The electrocardiogram showed a sinus rhythm with an average heart rate of 60 beats per minute. EEG showed normal waveforms for wake and sleep. Respiratory events were best palliated with CPAP at a pressure of +6. There was some limb activity in the EMG leads. Limb movement arousal index was 8.4. IMPRESSION: Obstructive sleep apnea syndrome (G47.33). RECOMMENDATION: Nightly use of pressure therapy 6 cm of water. cc: Beatriz Stephens M.D.
== END ==
LOC: M SLEEP 20:00
PROVIDERS: ATTEND Physician Assistant
DX: G47.33 Obstructive sleep apnea (adult) (pediatric) (principal)

== ENCOUNTER → 2021-05-13 | Outpatient (CLI) | payer MEDICARE | LOC: M WUC 10:34 | PROVIDERS: ATTEND Registered Nurse | DX: M25.561 Pain in right knee (principal) ==

== ENCOUNTER → 2021-07-10 | Outpatient (CLI) | payer MEDICARE ==
[~2021-07-10] MED LIST changes: +BARIUM SULFATE 700 MG TABLET (E-Z-DISK) As Ordered ONE; +E-Z-GAS II EFFERVESCENT PACKET (SODIUM BICARB./CITRIC ACID/SIMETHICONE) As Ordered ONE; +E-Z-HD 98% w/w 340GM SUSP BTL As Ordered ONE; +E-Z-PAQUE 96% w/w SUSP 176GM BTL As Ordered ONE
== END ==
LOC: M RAD 08:42
PROVIDERS: ATTEND Nurse Practitioner Family
DX: R13.10 Dysphagia, unspecified (principal)

== ENCOUNTER → 2021-12-02 | Outpatient (CLI) | payer MEDICARE ==
[~2021-12-02] MED LIST changes: -BARIUM SULFATE 700 MG TABLET (E-Z-DISK) As Ordered ONE; -E-Z-GAS II EFFERVESCENT PACKET (SODIUM BICARB./CITRIC ACID/SIMETHICONE) As Ordered ONE; -E-Z-HD 98% w/w 340GM SUSP BTL As Ordered ONE; -E-Z-PAQUE 96% w/w SUSP 176GM BTL As Ordered ONE
== END ==
LOC: M PLALAB 13:55
PROVIDERS: ATTEND Physician Assistant
DX: Z12.5 Encounter for screening for malignant neoplasm of prostate (principal)

== ENCOUNTER 2022-03-30 00:42 | Observation (INO) | payer MEDICARE ==
[~2022-03-30] VITALS: Ht 172.7 cm; Wt 84.9 kg
[2022-03-30] MEDS ORDERED: ETOMIDATE INJ 20MG/10ML VIAL ONE (00:43)
[2022-03-30 01:33] LABS: BASO # 0.1 10^3/uL (0.0-0.2); BASO % 0.7 % (0.0-1.0); EOS # 0.5 10^3/uL (0.0-0.5); EOS % 5.1 % (0.0-3.0); HEMATOCRIT 41.5 % (42.0-52.0); HEMOGLOBIN 14.4 g/dl (13.5-17.5); LYMPH # 1.3 10^3/uL (1.5-5.0); LYMPH % 14.2 % (24.0-44.0); MEAN CORPUSCULAR HEMOGLOBIN 30.6 pg (27.0-33.0); MEAN CORPUSCULAR HGB CONC 34.7 g/dl (32.0-36.5); MEAN CORPUSCULAR VOLUME 88.1 fl (80.0-96.0); MONO % 10.4 % (2.0-8.0); NEUTROPHILS # 6.4 10^3/uL (1.5-8.5); NEUTROPHILS % 69.3 % (36.0-66.0); PLATELET COUNT, AUTOMATED 263 10^3/uL (150-450); RED BLOOD COUNT 4.71 10^6/uL (4.30-6.10); WHITE BLOOD COUNT 9.2 10^3/uL (4.0-10.0)
[2022-03-30] MEDS ORDERED: METOPROLOL TART 25 MG TABLET PO ONE (02:00)
[2022-03-30 02:02] LABS: CK-MB VALUE MASS 1.6 NG/ML (<3.6)
[2022-03-30 02:03] LABS: BLOOD UREA NITROGEN 18 MG/DL (9-23); CALCIUM LEVEL 8.6 MG/DL (8.3-10.6); CARBON DIOXIDE LEVEL 22 MMOL/L (20-31); CHLORIDE LEVEL 103 MMOL/L (98-107); CK-MB VALUE MASS 1.5 NG/ML (<3.6); CPK CREATINE PHOSPHOKINASE 151 U/L (46-171); CREATININE FOR GFR 0.75 MG/DL (0.70-1.30); GLOMERULAR FILTRATION RATE > 60.0 (>42); GLUCOSE, FASTING 127 MG/DL (74-106); MAGNESIUM LEVEL 1.9 MG/DL (1.8-2.4); MB/CK RELATIVE INDEX 0.99 (< OR =4); POTASSIUM SERUM 3.9 MMOL/L (3.5-5.1); SODIUM LEVEL 135 MMOL/L (136-145)
[2022-03-30 02:05] LABS: MB/CK RELATIVE INDEX 1.01 (< OR =4)
[2022-03-30] MEDS: METOPROLOL 5 MG/5 ML VIAL IV PRN ×6 (02:06→02:39)
[2022-03-30 02:07] LABS: FREE T4 0.88 NG/DL (0.89-1.76); THYROID STIMULATING HORMONE 3.526 uIU/ML (0.55-4.78)
[2022-03-30] MEDS ORDERED: NS 1,000 ML IV ONE (02:55)
[2022-03-30] MEDS ORDERED: AMIODARONE HCL 150 MG in IV 1 EA IV ONE ×2 (04:10→04:30)
[2022-03-30] MEDS ORDERED: ETOMIDATE INJ 20MG/10ML VIAL IV ONE (07:15)
[2022-03-30] MEDS: NS 1,000 ML IV SCH ×2 (07:54→18:08)
[2022-03-30] MEDS ORDERED: VITMTA PO (10:06)
[2022-03-30] MEDS ORDERED: TAMS1CAP17 PO (10:06)
[2022-03-30] MEDS ORDERED: FLUO40CA PO (10:06)
[2022-03-30] MEDS ORDERED: ATOR1TAB19 PO (10:06)
[2022-03-30] MEDS ORDERED: OXYB10TA23 PO (10:06)
[2022-03-30] MEDS ORDERED: AMMO12CR7 TOP (10:07)
[2022-03-30] MEDS ORDERED: HOME MED LIST COMPLETE! XX SCH (10:10)
[2022-03-30] MEDS ORDERED: ACETAMINOPHEN TAB 650MG DOSE (2X325MG) PO PRN (11:50)
[2022-03-30] MEDS ORDERED: MAALOX 30 ML SUSP *UDC PO PRN (11:50)
[2022-03-30] MEDS ORDERED: MOM 30ML SUSPENSION UDC PO PRN (11:50)
[2022-03-30 14:23] LABS: RSV AMPLIFICATION NEGATIVE (NEGATIVE)
[2022-03-30 16:20] VITALS: BP 101/75
[2022-03-30] MEDS: TAMSULOSIN 0.4 MG CAP PO SCH (17:10)
[2022-03-30] MEDS: MULTIVITAMINS/MINERALS THERAP 1 TAB PO SCH (17:10)
[2022-03-30] MEDS: oxyBUTYnin *DITROPAN XL* 5 MG TABCR PO SCH (17:10)
[2022-03-30] MEDS: FLUoxetine 20MG CAP PO SCH (17:10)
[2022-03-30 17:49] LABS: INR 0.93; PROTHROMBIN TIME 12.7 SECONDS (12.5-14.5)
[2022-03-30 17:54] LABS: PARTIAL THROMBOPLASTIN TIME 26.6 SECONDS (24.8-34.2)
[2022-03-30 20:00] VITALS: BP 127/68
[2022-03-30] MEDS: DOCUSATE SODIUM 100MG CAPSULE PO SCH (20:01)
[2022-03-30] MEDS: APIXABAN 5 MG TAB (ELIQUIS) PO SCH (20:01)
[2022-03-30] MEDS ORDERED: ATORVASTATIN 10 MG TAB PO SCH (21:00)
[2022-03-31] VITALS: BP 122/56
[2022-03-31] MEDS: METOPROLOL 5 MG/5 ML VIAL IV SCH ×3 (03:31→03:49)
[2022-03-31] MEDS: NS 1,000 ML IV SCH (03:41)
[2022-03-31 03:49] VITALS: BP 117/76
[2022-03-31] MEDS ORDERED: AMIODARONE 200 MG TAB (PACERONE) PO SCH (05:00)
[2022-03-31 07:38] VITALS: BP 136/87
[2022-03-31 08:23] LABS: BASO % 0.6 % (0.0-1.0); EOS # 0.4 10^3/uL (0.0-0.5); EOS % 5.3 % (0.0-3.0); HEMATOCRIT 39.7 % (42.0-52.0); HEMOGLOBIN 13.4 g/dl (13.5-17.5); LYMPH # 1.4 10^3/uL (1.5-5.0); LYMPH % 19.5 % (24.0-44.0); MEAN CORPUSCULAR HEMOGLOBIN 30.4 pg (27.0-33.0); MEAN CORPUSCULAR HGB CONC 33.8 g/dl (32.0-36.5); MONO # 0.7 10^3/uL (0.0-0.8); MONO % 9.4 % (2.0-8.0); NEUTROPHILS # 4.6 10^3/uL (1.5-8.5); NEUTROPHILS % 64.9 % (36.0-66.0); PLATELET COUNT, AUTOMATED 257 10^3/uL (150-450); RED BLOOD COUNT 4.41 10^6/uL (4.30-6.10); WHITE BLOOD COUNT 7.1 10^3/uL (4.0-10.0)
[2022-03-31] MEDS: DOCUSATE SODIUM 100MG CAPSULE PO SCH (08:28)
[2022-03-31] MEDS: MULTIVITAMINS/MINERALS THERAP 1 TAB PO SCH (08:28)
[2022-03-31] MEDS: FLUoxetine 20MG CAP PO SCH (08:29)
[2022-03-31] MEDS: TAMSULOSIN 0.4 MG CAP PO SCH (08:29)
[2022-03-31] MEDS: oxyBUTYnin *DITROPAN XL* 5 MG TABCR PO SCH (08:29)
[2022-03-31] MEDS: APIXABAN 5 MG TAB (ELIQUIS) PO SCH (08:29)
[2022-03-31 08:46] LABS: BLOOD UREA NITROGEN 10 MG/DL (9-23); CARBON DIOXIDE LEVEL 25 MMOL/L (20-31); CHLORIDE LEVEL 107 MMOL/L (98-107); CREATININE FOR GFR 0.73 MG/DL (0.70-1.30); GLOMERULAR FILTRATION RATE > 60.0 (>42); GLUCOSE, FASTING 99 MG/DL (74-106); POTASSIUM SERUM 4.2 MMOL/L (3.5-5.1); SODIUM LEVEL 137 MMOL/L (136-145)
[2022-03-31] MEDS ORDERED: LACTIC ACID 12% LOTION 225 GM BTL TOP SCH (09:00)
[2022-03-31 09:43] LABS: MAGNESIUM LEVEL 1.8 MG/DL (1.8-2.4)
[2022-03-31 11:35] VITALS: BP 116/57
[2022-03-31 15:49] VITALS: BP 119/59
== END 2022-03-31 18:05 | disposition short-term general hospital (02) ==
LOC: M ED 00:42 → M ED INP 00:43 → ENRESERV 13:11 → M PCU 16:16
PROVIDERS: ADMIT Internal Medicine; ATTEND Internal Medicine
DX: I48.91 Unspecified atrial fibrillation (principal); E78.5 Hyperlipidemia, unspecified; N32.81 Overactive bladder; N40.0 Benign prostatic hyperplasia without lower urinary tract symptoms; Z86.16 Personal history of COVID-19; Z91.040 Latex allergy status; F32.A Depression, unspecified; Z79.899 Other long term (current) drug therapy
CPT/HCPCS: 36415; 71045; 80048; 82550; 82553; 83735; 83880; 84439; 84443; 84484; 85025; 85610; 85730; 87631; 93005; 93041; 93306; 94760; 96361; 96374; 96375; 96376; 99285; G0378

== ENCOUNTER → 2022-12-22 | Outpatient (CLI) | payer MEDICARE ==
[~2022-12-22] MED LIST changes: +AMMO12CR7 TOP; +FLUO40CA PO; +OXYB10TA23 PO; +TAMS1CAP17 PO; +VITMTA PO
== END ==
LOC: M SLEEP 20:00
PROVIDERS: ATTEND Physician Assistant
DX: G47.33 Obstructive sleep apnea (adult) (pediatric) (principal); G47.61 Periodic limb movement disorder

== ENCOUNTER → 2023-06-08 | Outpatient (CLI) | payer MEDICARE ==
[2023-06-10 23:07] LABS: PSA % FREE 21.3 % (.); PSA FREE 1.15 ng/mL; PSA TOTAL 5.4 ng/mL (0.0-4.0)
== END ==
LOC: M PLALAB 15:48
PROVIDERS: ATTEND Physician Assistant
DX: R97.20 Elevated prostate specific antigen [PSA] (principal)

== ENCOUNTER → 2023-08-24 | Outpatient (CLI) | payer MEDICARE ==
[~2023-08-24] MED LIST changes: +FLUO-365 PO; -FLUO20CA22 PO
== END ==
LOC: M PLALAB 08:41
PROVIDERS: ATTEND Physician Assistant
DX: R97.20 Elevated prostate specific antigen [PSA] (principal)

== ENCOUNTER 2023-11-11 14:21 | Emergency (ER) | payer MEDICARE ==
[~2023-11-11] VITALS: Ht 172.7 cm; Wt 82.4 kg
[2023-11-11] MEDS ORDERED: ELIQ5TAB PO (14:31)
[2023-11-11] MEDS ORDERED: COQ150CH PO (14:31)
[2023-11-11 18:51] VITALS: BP 127/77; TEMP 97; O2SAT 94
== END 2023-11-11 18:52 | disposition home or self-care (01) ==
LOC: M ED 14:21
DX: S09.90XA Unspecified injury of head, initial encounter (principal); W01.198A Fall on same level from slipping, tripping and stumbling with subsequent striking against other object, initial encounter; M50.33 Other cervical disc degeneration, cervicothoracic region; N40.0 Benign prostatic hyperplasia without lower urinary tract symptoms; E78.5 Hyperlipidemia, unspecified; I10 Essential (primary) hypertension; Y92.007 Garden or yard of unspecified non-institutional (private) residence as the place of occurrence of the external cause; Y93.89 Activity, other specified; Y99.9 Unspecified external cause status; Z91.040 Latex allergy status; Z79.01 Long term (current) use of anticoagulants; Z79.02 Long term (current) use of antithrombotics/antiplatelets; Z79.899 Other long term (current) drug therapy

== ENCOUNTER → 2024-03-04 | Outpatient (CLI) | payer MEDICARE ==
[~2024-03-04] MED LIST changes: +COQ150CH PO; +ELIQ5TAB PO
== END ==
LOC: M WHC 10:08
PROVIDERS: ATTEND Physician Assistant Medical
DX: K40.90 Unilateral inguinal hernia, without obstruction or gangrene, not specified as recurrent (principal)

== ENCOUNTER → 2024-05-18 | Outpatient (REF) | payer MEDICARE ==
[~2024-05-18] MED LIST changes: +MULTTAB61 PO
[2024-05-18 15:16] LABS: PERCENT SATURATION 35.6 % (19.7-50.0)
[2024-05-18 15:19] LABS: FERRITIN 135.5 NG/ML (10.5-307.3)
== END ==
LOC: M LAB REF 14:10
PROVIDERS: ATTEND Internal Medicine
DX: R53.83 Other fatigue (principal)

== ENCOUNTER → 2024-06-13 | Outpatient (CLI) | payer MEDICARE | LOC: M PLAIMG 10:09 | PROVIDERS: ATTEND Registered Nurse | DX: R94.31 Abnormal electrocardiogram [ECG] [EKG] (principal); R06.02 Shortness of breath ==

== ENCOUNTER → 2024-06-23 | Outpatient (CLI) | payer MEDICARE | LOC: M CARPUL 08:00 | PROVIDERS: ATTEND Registered Nurse | DX: R94.31 Abnormal electrocardiogram [ECG] [EKG] (principal); R06.02 Shortness of breath ==

== ENCOUNTER 2024-06-27 08:26 | Day surgery (SDC) | payer MEDICARE ==
[~2024-06-27] VITALS: Ht 170.2 cm; Wt 80.6 kg
[2024-06-27] MEDS: CelecoXIB 400 MG CAP PO ONE (06:00)
[~2024-06-27 08:26] MED LIST changes: +AMMO12CR4 TOP; -AMMO12CR7 TOP
[2024-06-27] MEDS ORDERED: LR 1,000 ML IV SCH ×2 (08:35→12:15)
[2024-06-27] MEDS ORDERED: ROCURONIUM BROMIDE 50MG/5ML VIAL As Ordered ONE (08:40)
[2024-06-27] MEDS ORDERED: LIDOCAINE 2% 100MG/5ML SDV (FOR ANES.) As Ordered ONE (08:40)
[2024-06-27] MEDS ORDERED: ONDANSETRON 4MG 2ML VIAL As Ordered ONE (08:40)
[2024-06-27] MEDS ORDERED: propofoL 200 MG/20 ML VIAL As Ordered ONE (08:40)
[2024-06-27] MEDS ORDERED: ACETAMINOPHEN 1000MG/100ML IV BAG As Ordered ONE (08:40)
[2024-06-27] MEDS ORDERED: fentaNYL 100 MCG/2 ML INJECTION As Ordered ONE (08:40)
[2024-06-27] MEDS: ceFAZolin SOD 2 GM IV ONCE IV ONE (10:37)
[2024-06-27] MEDS ORDERED: ePHEDrine SULFATE 25 MG/5 ML(5MG/ML) SYRINGE As Ordered ONE (10:58)
[2024-06-27] MEDS ORDERED: PHENYLephrine 500MCG 5ML (100MCG/ML) SYRINGE As Ordered ONE (11:01)
[2024-06-27] MEDS ORDERED: SUGAMMADEX SODIUM 500 MG/5 ML VIAL As Ordered ONE (11:37)
[2024-06-27] MEDS ORDERED: KETOROLAC 30 MG/ML 1ML VIAL As Ordered ONE (11:37)
[2024-06-27] MEDS: LIDOCAINE 1% SDV 30ML VIAL As Ordered ONE (12:08)
[2024-06-27] MEDS ORDERED: HYDROMORPHONE HCL 0.5 MG/ 0.5 ML SYRINGE IV PRN (12:15)
[2024-06-27] MEDS ORDERED: fentaNYL 100 MCG/2 ML INJECTION IV PRN (12:15)
[2024-06-27] MEDS ORDERED: ONDANSETRON 4MG 2ML VIAL IV PRN (12:15)
[2024-06-27] MEDS: oxyCODONE 5MG TAB PO PRN (12:48)
[2024-06-27] MEDS ORDERED: NORCO, ANEXSIA 5/325MG TABLET (HYDROcodone/ACETAMINOPHEN) PO PRN ×2 (13:25)
[2024-06-27 14:07] VITALS: BP 133/67; TEMP 96.8; O2SAT 96
== END 2024-06-27 14:23 | disposition home or self-care (01) ==
LOC: M SDC 08:26
PROVIDERS: ATTEND Surgery
DX: K40.90 Unilateral inguinal hernia, without obstruction or gangrene, not specified as recurrent (principal); I48.91 Unspecified atrial fibrillation; J44.9 Chronic obstructive pulmonary disease, unspecified; F41.9 Anxiety disorder, unspecified; F32.A Depression, unspecified; Z79.899 Other long term (current) drug therapy; Z79.01 Long term (current) use of anticoagulants; G47.30 Sleep apnea, unspecified; N40.0 Benign prostatic hyperplasia without lower urinary tract symptoms; Z91.040 Latex allergy status
CPT/HCPCS: 49650; C1781; J0131; J0665; J0690; J1100; J1885; J2371; J2405; J3010; S2900